=== PATIENT | female | born 1970 | race Caucasian/White ===

== ENCOUNTER 2021-09-07 19:34 | Inpatient (IN) | payer OTHER ==
[2021-09-07] MEDS ORDERED: levETIRAcetam IV 1,000 MG in SALINE 1 100ML.BAG IVPB STA (20:04)
[2021-09-07] MEDS ORDERED: LORazepam 2 MG/ML INJ IM STA (20:04)
[2021-09-07] MEDS ORDERED: LORazepam 2 MG/ML INJ IV STA (20:04)
--- NOTE | 2021-09-07 20:10 | ED ---
General Adult HPI - General Chief complaint: Seizure Stated complaint: Seizure Time Seen by Provider: 09/07/21 19:39 Source: patient Mode of arrival: ambulatory - History of Present Illness Initial comments: Dictation was produced using [employer] dictation software. please excuse any grammatical, word or spelling errors. Chief Complaint: 51-year-old female brought to our emergency Department from [facility] for seizures. History of Present Illness: 51-year-old female sent in from [facility] for escalation of care. Patient was initially seen at [facility] for alleged for seizures today. According to transfer documentation there was concern of perhaps methamphetamine withdrawals. She did have a seizure that was witnessed by the ER doctor [facility] she was given 2 mg of Ativan. She had blood work performed and computed tomography scan the brain which all were unremarkable. At the time of arrival patient states she had a mild headache. She reports that she takes Topamax and Keppra. She does not know the exact dose. States that she is mostly compliant with it except for one or 2 days last week. Patient has any chest pain or shortness of breath. No constitutional symptoms. She states that she is expressing a lot of stress but that is normal for her. According to the transferring ER doctor she was sent to her facility [facility] that we have a neurology hospitalist. [facility] did have neurology but only the tele neurology service. The ROS documented in this emergency department record has been reviewed and confirmed by me. Those systems with pertinent positive or negative responses have been documented in the HPI. All other systems are other negative and/or noncontributory. PHYSICAL EXAM: General Impression: Alert and oriented x3, not in acute distress HEENT: Normocephalic atraumatic, extra-ocular movements intact, pupils equal and reactive to light bilaterally, mucous membranes moist. Cardiovascular: Heart regular rate and rhythm Chest: Able to complete full sentences, no retractions, no tachypnea Abdomen: abdomen soft, non-tender, non-distended, no organomegaly Musculoskeletal: Pulses present and equal in all extremities, no peripheral edema Motor: no focal deficits noted Neurological: CN II-XII grossly intact, no focal motor or sensory deficits noted Skin: Intact with no visualized rashes Psych: Normal affect and mood ED course: 51-year-old female presents emergency Department from outside hospital for admission because we have neurology hospitalist. Vital signs upon arrival are within acceptable limits. While patient was being triaged by nursing staff patient did have a seizure that lasted for 2 minutes she was given 2 mg of Ativan. Patient also ordered for 1 g of Keppra. Case is discussed with Dr. Lauren of neurology. He recommended starting patient on Keppra 1000 mg twice a day and Topamax 100 mg twice a day. Patient be admitted to stepdown unit. When necessary Ativan ordered. Patient be admitted to [facility] hospitalist group. - Related Data Allergies Allergy/AdvReac Type Severity Reaction Status Date / Time acetaminophen [From Tylenol] Allergy Rash/Hives Verified 09/07/21 20:06 morphine Allergy Rash/Hives Verified 09/07/21 20:06 Review of Systems ROS Statement: Those systems with pertinent positive or pertinent negative responses have been documented in the HPI. ROS Other: All systems not noted in ROS Statement are negative. Course Vital Signs 09/07/21 19:43 Temperature 97.6 F Pulse Rate 68 Respiratory 15 Rate Blood Pressure 122/77 Medical Decision Making - Lab Data Result diagrams: 09/07/21 20:12 09/07/21 20:12 Lab Results 09/07/21 09/07/21 09/07/21 Range/Units 20:12 20:12 20:12 WBC 9.0 (3.8-10.6) k/uL RBC 4.31 (3.80-5.40) m/uL Hgb 13.8 (11.4-16.0) gm/dL Hct 42.4 (34.0-46.0) % MCV 98.3 (80.0-100.0) fL MCH 32.1 (25.0-35.0) pg MCHC 32.7 (31.0-37.0) g/dL RDW 12.7 (11.5-15.5) % Plt Count 290 (150-450) k/uL MPV 6.9 Neutrophils % 78 % Lymphocytes % 15 % Monocytes % 5 % Eosinophils % 1 % Basophils % 0 % Neutrophils # 7.0 (1.3-7.7) k/uL Lymphocytes # 1.4 (1.0-4.8) k/uL Monocytes # 0.4 (0-1.0) k/uL Eosinophils # 0.1 (0-0.7) k/uL Basophils # 0.0 (0-0.2) k/uL Sodium 139 (137-145) mmol/L Potassium 5.2 H (3.5-5.1) mmol/L Chloride 107 (98-107) mmol/L Carbon Dioxide 26 (22-30) mmol/L Anion Gap 6 mmol/L BUN 19 H (7-17) mg/dL Creatinine 0.73 (0.52-1.04) mg/dL Est GFR (CKD-EPI)AfAm >90 (>60 ml/min/1.73 sqM) Est GFR (CKD-EPI)NonAf >90 (>60 ml/min/1.73 sqM) Glucose 84 (74-99) mg/dL Plasma Lactic Acid Jaycob 1.0 (0.7-2.0) mmol/L Calcium 9.5 (8.4-10.2) mg/dL Critical Care Time Critical Care Time: Yes Total Critical Care Time: 33 Disposition Clinical Impression: Seizure Disposition: ADMITTED IP TO THIS [facility] Condition: Fair Referrals: None,Stated [Primary Care Provider] - 1-2 days Decision Time: 21:00
[2021-09-07 20:38] LABS: Basophils % (A) 0 %; Eosinophils # (A) 0.1 k/uL (0-0.7); Eosinophils % (A) 1 %; HCT 42.4 % (34.0-46.0); HGB 13.8 gm/dL (11.4-16.0); Lymphocytes # (A) 1.4 k/uL (1.0-4.8); Lymphocytes % (A) 15 %; MCH 32.1 pg (25.0-35.0); MCHC 32.7 g/dL (31.0-37.0); MCV 98.3 fL (80.0-100.0); Mean Platelet Volume 6.9; Monocytes # (A) 0.4 k/uL (0-1.0); Monocytes % (A) 5 %; Neutrophils % (A) 78 %; Platelet Count 290 k/uL (150-450); RBC 4.31 m/uL (3.80-5.40); RDW 12.7 % (11.5-15.5)
[2021-09-07 20:44] LABS: African American GFR (CKD) >90 (>60 ml/min/1.73 sqM); Anion Gap 6 mmol/L; Blood Urea Nitrogen 19 mg/dL (7-17); Calcium 9.5 mg/dL (8.4-10.2); Carbon Dioxide 26 mmol/L (22-30); Chloride 107 mmol/L (98-107); Glucose 84 mg/dL (74-99); Non-African American GFR(CKD) >90 (>60 ml/min/1.73 sqM); Sodium 139 mmol/L (137-145)
[2021-09-07 20:46] LABS: Potassium 5.2 mmol/L (3.5-5.1)
[2021-09-07] MEDS ORDERED: NALOXONE 0.4 MG/ML 1 ML VIAL IV PRN (20:57)
[2021-09-07] MEDS ORDERED: LORazepam 2 MG/ML INJ IV PRN (20:57)
[2021-09-07] MEDS: levETIRAcetam 500 MG TAB PO SCH (23:41)
[2021-09-07] MEDS: TOPIRAMATE 100 MG TAB PO SCH (23:41)
[2021-09-08] MEDS: SODIUM CHLORIDE 0.9% 1,000 ML IV SCH ×2 (07:24→20:04)
[2021-09-08] MEDS: HEPARIN SODIUM,PORCINE/PF 5,000 UNIT/0.5 ML SYRINGE SQ SCH ×2 (09:11→19:59)
[2021-09-08] MEDS: TOPIRAMATE 100 MG TAB PO SCH (09:11)
[2021-09-08] MEDS: BUTALB/APAP/CAFF 50-325-40MG TAB PO PRN (09:12)
[2021-09-08] MEDS: levETIRAcetam 500 MG TAB PO SCH ×2 (09:12→19:59)
[2021-09-08] MEDS: FAMOTIDINE 20 MG/2 ML VIAL IV SCH ×2 (09:12→19:59)
[2021-09-08] MEDS: PANTOPRAZOLE 40 MG/10 ML VIAL IV SCH (09:12)
--- NOTE | 2021-09-08 10:20 | P.HPIM ---
History of Present Illness This is a pleasant 51 years old female with past medical history of seizure. She was transferred from [facility] for evaluation for her seizure. Patient has 2 of her seizure medication change and to Topamax. She H ad One Week Ago and Prior to Admission. Patient is been from [place] and she has been here for 3 days as per report. She's been smoking marijuana prior to development seizure. Also patient on arrival to the emergency room at [facility] she was in active seizure, weakness for 2 minutes.. Also there was possible to considering methamphetamine withdrawal. Also patient says that she's been taking her medication of Keppra and Topamax. Also she had multiple seizures on admission. Patient currently was sitting in bed in the emergency room. She is fully awake and oriented to time, place and person. She still states she is here visiting from [place] for the last 3 days. She is a known case of seizure since . She states she has been having bunch of seizures. She states that she follow up with her neurologist and due to her seizure on last May he switched her gabapentin and 2 Keppra. While Topamax she's been taking it for the last 2 years. Patient was compliant with taking her seizure medication. Yesterday she had a seizure which lasted for 25 minutes as per Faviola and. And after 10 minutes she had another seizure which lasted 15-20 minutes. Patient reports another seizure about one week ago, one month ago and last May. Also she has several seizures last year. Also patient is complaining of from headache. She states that this is her migraine headache which happens every 2-3 weeks and usually lasts 4-5 days. She started to have headache about 3 days ago which started in the back of her head and then moved to the left side, and she rated at 6/10. [place] like throbbing and usually it limits her activities. Patient also complaining from left upper and lower extremity numbness and weakness, her numbness is in her left hand and arm left side down into the foot. In process look weaker which has been going on for the last 2 days. Patient also she has history of absent left knee patella. Chest history of kidney stones status post ureteral stent. She reports some increased frequency of urination but no dysuria or urgency. She smokes about 1/2 pack per day, no alcohol or illicit drugs. Vitals are stable. Labs including CBC, BMP are unremarkable except for potassium 5.2. At [facility], i reviewed work up there and shows Urine drug screen was positive for cannabinoids and benzodiazepines. UA is suspicious for infection. CT of the head without contrast showing no evidence of acute hemorrhage or mass effect. Review of Systems CONSTITUTIONAL: No fever, no malaise, no fatigue. HEENT: No recent visual problems or hearing problems. Denied any sore throat. CARDIOVASCULAR: No orthopnea, PND, no palpitations, no syncope. PULMONARY: No shortness of breath, no cough, no hemoptysis. GASTROINTESTINAL: No diarrhea, no nausea, no vomiting, no abdominal pain. Normoactive bowel sounds. NEUROLOGICAL: No headaches, no weakness, no numbness. HEMATOLOGICAL: Denies any bleeding or petechiae. GENITOURINARY: Denies any burning micturition, frequency, or urgency. MUSCULOSKELETAL/RHEUMATOLOGICAL: Denies any joint pain, swelling, or any muscle pain. ENDOCRINE: Denies any polyuria or polydipsia. Medications and Allergies Home Medications Medication Instructions Recorded Confirmed Type Unable To Assess [Unable to Assess] 09/07/21 09/07/21 History Allergies Allergy/AdvReac Type Severity Reaction Status Date / Time acetaminophen [From Tylenol] Allergy Rash/Hives/ Verified 09/08/21 10:01 Swelling morphine Allergy Rash/Hives/ Verified 09/08/21 10:01 Swelling Physical Exam Vitals: Vital Signs Temp Pulse Resp BP 09/08/21 04:30 88 98/48 09/08/21 02:15 70 99/64 09/08/21 00:15 67 104/70 09/07/21 22:15 71 117/92 09/07/21 21:15 74 126/83 09/07/21 19:43 97.6 F 68 15 122/77 Intake and Output 09/07/21 09/08/21 09/08/21 22:59 06:59 14:59 Other: Weight 66.678 kg GENERAL: The patient is alert and oriented x3, not in any acute distress. Well developed, well nourished. HEENT: Pupils are round and equally reacting to light. EOMI. No scleral icterus. No conjunctival pallor. Normocephalic, atraumatic. No pharyngeal erythema. No thyromegaly. CARDIOVASCULAR: S1 and S2 present. No murmurs, rubs, or gallops. PULMONARY: Chest is clear to auscultation, no wheezing or crackles. ABDOMEN: Soft, nontender, nondistended, normoactive bowel sounds. No palpable organomegaly. MUSCULOSKELETAL: No joint swelling or deformity. EXTREMITIES: No cyanosis, clubbing, or pedal edema. NEUROLOGICAL: Cranial nerves are grossly intact. Left arm and leg weak compared to the right side 3/5. Sensation showing numbness on the left side. Meningeal signs are absent. Gait: Deferred SKIN: No rashes. No petechiae Results CBC & Chem 7: 09/07/21 20:12 09/07/21 20:12 Labs: Abnormal Lab Results - Last 24 Hours (Table) 09/07/21 Range/Units 20:12 Potassium 5.2 H (3.5-5.1) mmol/L BUN 19 H (7-17) mg/dL Assessment and Plan Assessment: Breakthrough seizure left hemiparesis, rule out acute stroke Possible complicated Migraine headache possible Acute urinary tract infection, related to her history of kidney stone a nd ureteral stent Nicotine dependence Substance abuse with cannabinoids Plan: This is a pleasant 51 years old female who presents with seizure. Continue with Keppra and Topamax. Neurology consult. Continue with Ativan as needed Start fiorocet when necessary Neuro check continue with ceftriaxone and follow-up culture at [facility]. Repeat urine analysis Check a bladder scan Labs and medication were reviewed.. Continue same treatment. Continue with symptomatic treatment. Resume home medication. Monitor lytes and vitals. DVT and GI prophylaxis. Further recommendations depends on the clinical course of the patient DVT prophylaxis: Subcutaneous heparin GI Prophylaxis: Pepcid PT/OT: Pending Prognosis is guarded
[2021-09-08 13:55] LABS: Appearance,Urine Cloudy (Clear); Bacteria,Urine Rare /hpf; Bilirubin,Urine Negative (Negative); Blood,Urine Small (Negative); Color,Urine Yellow; Glucose,Urine (UA) Negative (Negative); Hyaline Casts,Urine 1 /lpf (0-2); Ketones,Urine Negative (Negative); Leukocyte Esterase,Urine Large (Negative); Mucus,Urine Occasional /hpf; Nitrite,Urine Negative (Negative); PH, Urine 7.5 (5.0-8.0); Protein,Urine Trace (Negative); RBC,Urine 19 /hpf (0-5); Specific Gravity,Urine 1.015 (1.001-1.035); Squamous Epithelial Cell,Urine 11 /hpf (0-4); Urobilinogen,Urine <2.0 mg/dL (<2.0); WBC,Urine 72 /hpf (0-5)
--- NOTE | 2021-09-08 16:10 | P.CNNES ---
History of Present Illness Consult date: 09/08/21 Requesting physician: Pardeep Damon Reason for Consult: Seizures History of Present Illness: Patient is a 51-year-old female, brought to the [facility] as a transfer from [facility] by ambulance yesterday at 7:34 PM for neurological evaluation. As per EMS flow sheet patient was brought in by her roommate after having a seizure in which the roommate states that lasted about 7 minutes. Patient was transferred to [facility] for neurological evaluation. Patient was alert and oriented 4 with GCS of 15. Patient has history of seizures and diabetes. Staff mentioned that patient was a little lethargic when she first arrived to them but slowly perked up while being in the care. Patient has received 2 mg of Ativan in [facility]. Patient's vitals recorded by EMS was 138/84 pulse rate 84 respiration 18 saturation 95% blood sugar 122. Temperature 98.2. Patient's blood test shows normal CBC, normal chem 7. Potassium 5.2. Patient used to live in [facility] and recently moved to [facility]. She has not established neurologist here locally. Patient tells me that she was "born with epilepsy". She has tried various medications including Dilantin, Depakote, Tegretol and phenobarbital. Most recently she is on Keppra at 150 mg twice a day and Topamax 50 mg daily. She believes Keppra has helped for the seizures. She used to have seizures" all the time", but now they're occurring about every 2 weeks. In the last 6 years, she had seizures in which her heart stops beating, and she states that once she "completely ". She required CPR. Other times she states that her "talks to her and brings her back". Patient says that she has 1-5 seizures a week based upon the level of stress. At the level of stress is high, the seizures are more. Patient says that she gets a grand mal as well as petit mal seizures. She denies any tongue bite although she does not lose control of urine. She has smoked less than half pack per day since 2013. She smokes weed once in a while. Denies any use of drugs. No alcohol use. She is recovering alcoholic since 2016. She drank heavily for several years prior. Outside records from [facility] not available. Review of Systems As mentioned in HPI. All other review of systems reviewed and unremarkable. Medications and Allergies Home Medications Medication Instructions Recorded Confirmed Type levETIRAcetam [Keppra] 250 mg PO Q12HR 09/08/21 09/08/21 History Allergies Allergy/AdvReac Type Severity Reaction Status Date / Time acetaminophen [From Tylenol] Allergy Rash/Hives/ Verified 09/08/21 10:01 Swelling morphine Allergy Rash/Hives/ Verified 09/08/21 10:01 Swelling Physical Examination - Vital Signs Vital Signs: Vital Signs Temp Pulse Resp BP Pulse Ox 09/08/21 09:00 68 16 114/76 97 09/08/21 04:30 88 98/48 09/08/21 02:15 70 99/64 09/08/21 00:15 67 104/70 09/07/21 22:15 71 117/92 09/07/21 21:15 74 126/83 09/07/21 19:43 97.6 F 68 15 122/77 Intake and Output 09/07/21 09/08/21 09/08/21 22:59 06:59 14:59 Other: Weight 66.678 kg Patient is a middle aged female in no acute distress. Patient is alert awake oriented to time place and person. Speech and language f unctions are normal. Attention, concentration and fund of knowledge is adequate. On cranial examination, pupils are equal, round and reacting to light, visual tovar are full on confrontation, extraocular muscles are intact with no nystagmus. Face is symmetric, tongue protrudes to the midline. Palatal elevation and sensation normal, hearing and shoulder shrug normal, facial sensation normal. Shoulder shrug normal. On muscle strength testing, there is no pronator drift and the strength is n ormal in arms distally and proximally. In the lower extremities patient has chronic weakness and numbness of the left leg. Her ankle dorsiflexion are normal bilaterally. Hip flexion is 4 on the right, 3+ on the left. Deep tendon reflexes are diminished and plantars are downgoing bilaterally. Sensory to touch is equal in the arms with no neglect. In the lower limbs patient has decreased sensation for touch in the left leg as compared to the right. Cerebellar function showed no ataxia for [id number] testing. Tone and bulk of muscles normal. Gait not checked. On general examination, there is no carotid bruit or murmur, S1-S2 audible. Abdomen is soft nontender. No organomegaly. Bowel sounds present. Chest is clear. Peripheral pulses are present. No edema. Results - Laboratory Findings CBC and BMP: 09/07/21 20:12 09/07/21 20:12 Abnormal Lab Findings: Abnormal Labs 09/07/21 20:12 Potassium 5.2 H BUN 19 H Assessment and Plan Assessment: * Seizure disorder, came with breakthrough seizure. Patient is on very low-dose of seizure medications including Keppra 250 mg twice a day and Topamax 50 mg at bedtime. Uncertain if patient has epileptic or nonepileptic seizures or combination of both. * Marijuana use. * Previous history of alcoholism, sober since 2016. Plan: * We will increase Keppra to 500 mg twice a day (MANAGER REPORT on Keppra 250 mg twice a day). Increase Topamax to 50 mg twice a day (MANAGER REPORT on Topamax 50 mg daily). * EEG was performed today, which is normal. No epileptiform activity was seen. * Neurologically clear for discharge. * Patient informed of [place] state law of no driving unless seizure free for 6 months, climbing ladders, operating dangerous machinery or unsupervised swim luis. * Recommend patient establish with local neurologist within 1-2 weeks if possible. Patient may benefit from prolonged, video EEG monitoring for further evaluation of her seizure disorder. * Thank you for the consult.
--- NOTE | 2021-09-08 16:22 | EEG ---
ELECTROENCEPHALOGRAM REPORT DATE OF SERVICE: 09/08/2021 PREAMBLE: This is a 51-year-old female who has lifelong history of seizure disorder, came with seizures. This study is performed to evaluate for any epileptiform activity. EEG FINDINGS: A 21 channel digital EEG recording with video component, utilizing 10/20 international system with referential and bipolar montages. Background consists of well developed, well regulated, moderate to high amplitude activity in the 10-12 hertz alpha. Background is posterior dominant and reactive to eye opening and closing. Drowsiness was seen with appearance of bilaterally symmetric theta frequency rhythm. Deeper stages of sleep were not seen. The photic driving response was not seen. No focal or generalized epileptiform activity was seen. Hyperventilation was not performed. IMPRESSION: This is a normal awake and drowsy EEG. No focal, lateralized or epileptiform activity was seen. Normal EEG does not rule out seizure disorder. If your suspicion for seizures is high, suggest prolonged, sleep-deprived EEG. MMODL / IJN: [id number] /
[2021-09-08] MEDS: NICOTINE 14MG/24HR PATCH TRANSDERM SCH (17:43)
[2021-09-08] MEDS: TOPIRAMATE 25 MG TAB PO SCH (19:59)
[2021-09-09 07:42] LABS: Levetiracetam (Keppra) 4.3 ug/mL (3.0-60.0)
[2021-09-09 08:17] LABS: Calcium 9.3 mg/dL (8.4-10.2); Potassium 4.4 mmol/L (3.5-5.1)
[2021-09-09] MEDS: TOPIRAMATE 25 MG TAB PO SCH ×2 (08:55→20:00)
[2021-09-09] MEDS: NICOTINE 14MG/24HR PATCH TRANSDERM SCH (08:55)
[2021-09-09] MEDS: BUTALB/APAP/CAFF 50-325-40MG TAB PO PRN ×2 (08:55→19:58)
[2021-09-09] MEDS: FAMOTIDINE 20 MG/2 ML VIAL IV SCH ×2 (08:55→20:01)
[2021-09-09] MEDS: levETIRAcetam 500 MG TAB PO SCH ×2 (08:55→19:58)
[2021-09-09] MEDS: PANTOPRAZOLE 40 MG/10 ML VIAL IV SCH (08:56)
[2021-09-09] MEDS: HEPARIN SODIUM,PORCINE/PF 5,000 UNIT/0.5 ML SYRINGE SQ SCH ×2 (08:57→19:58)
[2021-09-09] MEDS ORDERED: ONDANSETRON 4 MG/2 ML VIAL IVP PRN (13:49)
[2021-09-09] MEDS: SODIUM CHLORIDE 0.9% 1,000 ML IV SCH (20:00)
--- NOTE | 2021-09-10 07:27 | P.PN ---
Subjective Progress Note Date: 09/09/21 Patient was seen for a follow-up. Patient is sitting comfortably in his recliner. No seizures. Patient's blood test from today shows normal Chem-7, UA with large amount of leukocyte Estrace, 72 WBCs and rare bacteria. Urine cultures are negative. Patient currently on Rocephin 1 g every 24 hours. Objective - Vital Signs Vital signs: Vital Signs Temp 98.0 F 09/09/21 16:46 Pulse 68 09/09/21 16:46 Resp 18 09/09/21 16:46 BP 110/71 09/09/21 16:46 Pulse Ox 96 09/09/21 16:46 Intake & Output 09/08/21 09/09/21 09/09/21 18:59 06:59 18:59 Intake Total 485 Balance 485 Weight 66.678 kg Intake: Oral 485 Other: Voiding Method Toilet Toilet # Voids 1 1 2 - Exam Mental status, speech and language functions are normal. - Labs CBC & Chem 7: 09/07/21 20:12 09/09/21 07:17 Labs: Abnormal Lab Results - Last 24 Hours (Table) 09/09/21 Range/Units 07:17 Chloride 108 H (98-107) mmol/L BUN 19 H (7-17) mg/dL Creatinine 1.11 H (0.52-1.04) mg/dL Microbiology - Last 24 Hours (Table) 09/08/21 13:30 Urine Culture - Preliminary Urine,Clean Catch Assessment and Plan Assessment: * Seizure disorder, came with breakthrough seizure. Patient is on very low-dose of seizure medications including Keppra 250 mg twice a day and Topamax 50 mg at bedtime. Uncertain if patient has epileptic or nonepileptic seizures or combination of both. * Marijuana use. * Previous history of alcoholism, sober since 2016. Plan: * We will increase Keppra to 500 mg twice a day (CARDIAC REHAB NURSE on Keppra 250 mg twice a day). Increase Topamax to 50 mg twice a day (CARDIAC REHAB NURSE on Topamax 50 mg daily). Patient's Keppra level was 4.3. (3-60). Higher dose of Keppra will help. * EEG 09/08/2021 was normal. No epileptiform activity was seen. * Neurologically clear for discharge. * Patient informed of [place] state law of no driving unless seizure free for 6 months, climbing ladders, operating dangerous machinery or unsupervised swimming. * Recommend patient establish with local neurologist within 1-2 weeks if possible. Patient may benefit from prolonged, video EEG monitoring for further evaluation of her seizure disorder. * Neurology will sign off. Please reconsult if any concerns.
[2021-09-10] MEDS: FAMOTIDINE 20 MG/2 ML VIAL IV SCH ×2 (08:27→19:51)
[2021-09-10] MEDS: levETIRAcetam 500 MG TAB PO SCH ×2 (08:27→19:51)
[2021-09-10] MEDS: TOPIRAMATE 25 MG TAB PO SCH ×2 (08:27→19:51)
[2021-09-10] MEDS: PANTOPRAZOLE 40 MG/10 ML VIAL IV SCH (08:27)
[2021-09-10] MEDS: BUTALB/APAP/CAFF 50-325-40MG TAB PO PRN (08:28)
[2021-09-10] MEDS: HEPARIN SODIUM,PORCINE/PF 5,000 UNIT/0.5 ML SYRINGE SQ SCH ×2 (08:33→19:51)
[2021-09-10] MEDS: NICOTINE 14MG/24HR PATCH TRANSDERM SCH (10:14)
--- NOTE | 2021-09-10 17:17 | P.PN ---
Subjective Progress Note Date: 09/09/21 Principal diagnosis: Breakthrough seizures Left hemiparesis Possible complicated migraine headache versus acute stroke Acute UTI Substance abuse 51 years old female with past medical history of seizure. She was transferred from [facility] for evaluation for her seizure. Patient has 2 of her seizure medication change and to Topamax. She Had One Week Ago and Prior to Admission. Patient is been from [place] and she has been here for 3 days as per report. She's been smoking marijuana prior to development seizure. Also patient on arrival to the emergency room at [facility] she was in active seizure, weakness for 2 minutes.. Also there was possible to considering methamphetamine withdrawal. Also patient says that she's been taking her medication of Keppra and Topamax. Also she had multiple seizures on admission. Patient currently was sitting in bed in the emergency room. She is fully awake and oriented to time, place and person. She still states she is here visiting from [place] for the last 3 days. She is a known case of seizure since . She states she has been having bunch of seizures. She states that she follow up with her neurologist and due to her seizure on last May he switched her gabapentin and 2 Keppra. While Topamax she's been taking it for the last 2 years. Patient was compliant with taking her seizure medication. Yesterday she had a seizure which lasted for 25 minutes as per Faviola and. And after 10 minutes she had another seizure which lasted 15-20 minutes. Patient reports another seizure about one week ago, one month ago and last May. Also she has several seizures last year. Also patient is complaining of from headache. She states that this is her migraine headache which happens every 2-3 weeks and usually lasts 4-5 days. She started to have headache about 3 days ago which started in the back of her head and then moved to the left side, and she rated at 6/10. [place] like throbbing and usually it limits her activities. Objective - Vital Signs Vital signs: Vital Signs Temp 97.8 F 09/09/21 08:07 Pulse 72 09/09/21 08:07 Resp 20 09/09/21 08:07 BP 112/62 09/09/21 08:07 Pulse Ox 97 09/09/21 08:07 Intake & Output 09/08/21 09/09/21 09/09/21 18:59 06:59 18:59 Intake Total 485 Balance 485 Weight 66.678 kg Intake: Oral 485 Other: Voiding Method Toilet Toilet # Voids 1 1 - Exam GENERAL: The patient is alert and oriented x3, not in any acute distress. Well developed, well nourished. HEENT: Pupils are round and equally reacting to light. EOMI. No scleral icterus. No conjunctival pallor. Normocephalic, atraumatic. No pharyngeal erythema. No thyromegaly. CARDIOVASCULAR: S1 and S2 present. No murmurs, rubs, or gallops. PULMONARY: Chest is clear to auscultation, no wheezing or crackles. ABDOMEN: Soft, nontender, nondistended, normoactive bowel sounds. No palpable organomegaly. MUSCULOSKELETAL: No joint swelling or deformity. EXTREMITIES: No cyanosis, clubbing, or pedal edema. NEUROLOGICAL: Cranial nerves are grossly intact. Left arm and leg weak compared to the right side 3/5. Sensation showing numbness on the left side. Meningeal signs are absent. Gait: Deferred SKIN: No rashes. No petechiae - Labs CBC & Chem 7: 09/07/21 20:12 09/09/21 07:17 Labs: Abnormal Lab Results - Last 24 Hours (Table) 09/08/21 09/09/21 Range/Units 13:30 07:17 Chloride 108 H (98-107) mmol/L BUN 19 H (7-17) mg/dL Creatinine 1.11 H (0.52-1.04) mg/dL Urine Appearance Cloudy H (Clear) Urine Protein Trace H (Negative) Urine Blood Small H (Negative) Ur Leukocyte Esterase Large H (Negative) Urine RBC 19 H (0-5) /hpf Urine WBC 72 H (0-5) /hpf Ur Squamous Epith Cells 11 H (0-4) /hpf Urine Bacteria Rare H (None) /hpf Urine Mucus Occasional H (None) /hpf Microbiology - Last 24 Hours (Table) 09/08/21 13:30 Urine Culture - Preliminary Urine,Clean Catch Assessment and Plan Assessment: Breakthrough seizure left hemiparesis, rule out acute stroke Possible complicated Migraine headache possible Acute urinary tract infection, related to her history of kidney stone and ureteral stent Nicotine dependence Substance abuse with cannabinoids Plan: This is a pleasant 51 years old female who presents with seizure. Continue with Keppra and Topamax. Neurology consult. Continue with Ativan as needed Start fiorocet when necessary Neuro check continue with ceftriaxone and follow-up culture at [facility]. Repeat urine analysis Check a bladder scan Labs and medication were reviewed.. Continue same treatment. Continue with symptomatic treatment. Resume home medication. Monitor lytes and vitals. DVT and GI prophylaxis. Further recommendations depends on the clinical course of the patient DVT prophylaxis: Subcutaneous heparin GI Prophylaxis: Pepcid PT/OT: Pending Prognosis is guarded
--- NOTE | 2021-09-10 17:20 | P.PN ---
Subjective Progress Note Date: 09/10/21 Principal diagnosis: Breakthrough seizures Left hemiparesis Possible complicated migraine headache versus acute stroke Acute UTI Substance abuse 51 years old female with past medical history of seizure. She was transferred from [facility] for evaluation for her seizure. Patient has 2 of her seizure medication change and to Topamax. She Had One Week Ago and Prior to Admission. Patient is been from [place] and she has been here for 3 days as per report. She's been smoking marijuana prior to development seizure. Also patient on arrival to the emergency room at [facility] she was in active seizure, weakness for 2 minutes.. Also there was possible to considering methamphetamine withdrawal. Also patient says that she's been taking her medication of Keppra and Topamax. Also she had multiple seizures on admission. Patient currently was sitting in bed in the emergency room. She is fully awake and oriented to time, place and person. She still states she is here visiting from [place] for the last 3 days. She is a known case of seizure since . She states she has been having bunch of seizures. She states that she follow up with her neurologist and due to her seizure on last May he switched her gabapentin and 2 Keppra. While Topamax she's been taking it for the last 2 years. Patient was compliant with taking her seizure medication. Yesterday she had a seizure which lasted for 25 minutes as per Faviola and. And after 10 minutes she had another seizure which lasted 15-20 minutes. Patient reports another seizure about one week ago, one month ago and last May. Also she has several seizures last year. Also patient is complaining of from headache. She states that this is her migraine headache which happens every 2-3 weeks and usually lasts 4-5 days. She started to have headache about 3 days ago which started in the back of her head and then moved to the left side, and she rated at 6/10. [place] like throbbing and usually it limits her activities. 09/10/2021 Patient is seen and evaluated resting in bed; complaints of headache responding to Tylenol Vital signs are reviewed and reveal a temperature of 97.8, pulse 70, respiration 18 and blood pressure 101/70 with O2 saturation of 96% on room air Patient remains on IV ceftriaxone for UTI; urine culture is obtained and significant for skin and genital gordo; patient has been empirically placed on IV antibiotics; remains symptomatic; we will continue and complete an empiric five-day course of antibiotic therapy Objective - Vital Signs Vital signs: Vital Signs Temp 97.8 F 09/10/21 12:09 Pulse 70 09/10/21 12:09 Resp 18 09/10/21 12:09 BP 101/70 09/10/21 12:09 Pulse Ox 96 09/10/21 12:09 Intake & Output 09/09/21 09/10/21 09/10/21 18:59 06:59 18:59 Intake Total 485 Balance 485 Weight 66.7 kg Intake: Oral 485 Other: Voiding Method Toilet Toilet Toilet # Voids 3 2 3 - Exam GENERAL: The patient is alert and oriented x3, not in any acute distress. Well developed, well nourished. HEENT: Pupils are round and equally reacting to light. EOMI. No scleral icterus. No conjunctival pallor. Normocephalic, atraumatic. No pharyngeal erythema. No thyromegaly. CARDIOVASCULAR: S1 and S2 present. No murmurs, rubs, or gallops. PULMONARY: Chest is clear to auscultation, no wheezing or crackles. ABDOMEN: Soft, nontender, nondistended, normoactive bowel sounds. No palpable organomegaly. MUSCULOSKELETAL: No joint swelling or deformity. EXTREMITIES: No cyanosis, clubbing, or pedal edema. NEUROLOGICAL: Cranial nerves are grossly intact. Left arm and leg weak compared to the right side 3/5. Sensation showing numbness on the left side. Meningeal signs are absent. Gait: Deferred SKIN: No rashes. No petechiae - Labs CBC & Chem 7: 09/07/21 20:12 09/09/21 07:17 Labs: Microbiology - Last 24 Hours (Table) 09/08/21 13:30 Urine Culture - Final Urine,Clean Catch Assessment and Plan Assessment: Breakthrough seizure left hemiparesis, rule out acute stroke Possible complicated Migraine headache possible Acute urinary tract infection, related to her history of kidney stone and ureteral stent Nicotine dependence Substance abuse with cannabinoids Plan: This is a pleasant 51 years old female who presents with seizure. Continue with Keppra and Topamax. Neurology consult. Continue with Ativan as needed Start fiorocet when necessary Neuro check continue with ceftriaxone and follow-up culture at [facility]. Repeat urine analysis Check a bladder scan Labs and medication were reviewed.. Continue same treatment. Continue with symptomatic treatment. Resume home medication. Monitor lytes and vitals. DVT and GI prophylaxis. Further recommendations depends on the clinical course of the patient DVT prophylaxis: Subcutaneous heparin GI Prophylaxis: Pepcid PT/OT: Pending Prognosis is guarded
[2021-09-10] MEDS: SODIUM CHLORIDE 0.9% 1,000 ML IV SCH (19:52)
[2021-09-11 06:44] LABS: Calcium 9.4 mg/dL (8.4-10.2); Potassium 4.1 mmol/L (3.5-5.1)
[2021-09-11] MEDS: TOPIRAMATE 25 MG TAB PO SCH ×2 (08:42→20:29)
[2021-09-11] MEDS: PANTOPRAZOLE 40 MG/10 ML VIAL IV SCH (08:42)
[2021-09-11] MEDS: levETIRAcetam 500 MG TAB PO SCH ×2 (08:42→20:29)
[2021-09-11] MEDS: FAMOTIDINE 20 MG/2 ML VIAL IV SCH ×2 (08:43→20:29)
[2021-09-11] MEDS: NICOTINE 14MG/24HR PATCH TRANSDERM SCH (08:46)
[2021-09-11] MEDS: HEPARIN SODIUM,PORCINE/PF 5,000 UNIT/0.5 ML SYRINGE SQ SCH ×2 (08:46→20:30)
[2021-09-11] MEDS: BUTALB/APAP/CAFF 50-325-40MG TAB PO PRN (12:16)
[2021-09-11] MEDS: LORATADINE-PSEUDOEPH 5-120 MG 1 EACH TAB.ER.12H PO SCH ×2 (12:16→20:29)
[2021-09-11] MEDS: SODIUM CHLORIDE 0.9% 1,000 ML IV SCH ×2 (14:09→20:30)
--- NOTE | 2021-09-11 16:28 | P.PN ---
Subjective Progress Note Date: 09/11/21 Principal diagnosis: Breakthrough seizures Left hemiparesis Possible complicated migraine headache versus acute stroke Acute UTI Substance abuse 51 years old female with past medical history of seizure. She was transferred from [facility] for evaluation for her seizure. Patient has 2 of her seizure medication change and to Topamax. She Had One Week Ago and Prior to Admission. Patient is been from [place] and she has been here for 3 days as per report. She's been smoking marijuana prior to development seizure. Also patient on arrival to the emergency room at [facility] she was in active seizure, weakness for 2 minutes.. Also there was possible to considering methamphetamine withdrawal. Also patient says that she's been taking her medication of Keppra and Topamax. Also she had multiple seizures on admission. Patient currently was sitting in bed in the emergency room. She is fully awake and oriented to time, place and person. She still states she is here visiting from [place] for the last 3 days. She is a known case of seizure since . She states she has been having bunch of seizures. She states that she follow up with her neurologist and due to her seizure on last May he switched her gabapentin and 2 Keppra. While Topamax she's been taking it for the last 2 years. Patient was compliant with taking her seizure medication. Yesterday she had a seizure which lasted for 25 minutes as per Faviola and. And after 10 minutes she had another seizure which lasted 15-20 minutes. Patient reports another seizure about one week ago, one month ago and last May. Also she has several seizures last year. Also patient is complaining of from headache. She states that this is her migraine headache which happens every 2-3 weeks and usually lasts 4-5 days. She started to have headache about 3 days ago which started in the back of her head and then moved to the left side, and she rated at 6/10. [place] like throbbing and usually it limits her activities. 09/10/2021 Patient is seen and evaluated resting in bed; complaints of headache responding to Tylenol Vital signs are reviewed and reveal a temperature of 97.8, pulse 70, respiration 18 and blood pressure 101/70 with O2 saturation of 96% on room air Patient remains on IV ceftriaxone for UTI; urine culture is obtained and significant for skin and genital gordo; patient has been empirically placed on IV antibiotics; remains symptomatic; we will continue and complete an empiric five-day course of antibiotic therapy 09/11/2021 Patient is seen and evaluated in room at bedside; reports excessive weakness, nasal congestion along with runny nose and watery eyes; continues to complain of headaches; does report history of ALLERGIC sinusitis Vital signs are reviewed and remained stable Labs are reviewed which reveal sodium of 136, potassium of 4.1, BUN/creatinine trending up at 20/1.14 from 19/0.73 on 09/07/2021; patient reports poor oral intake - We will start patient on normal saline at rate of 75 mL an hour; Claritin 10 mg daily; we will order influenza A and B screen; continue with IV fluid hydration and symptomatic treatment Patient has been cleared for discharge by neuro service; however patient reporting excessive weakness and inability; discharge will be held for IV fluid hydration Can be discharged in next 24 hours once hydration improves and influenza screen is negative Objective - Vital Signs Vital signs: Vital Signs Temp 98.0 F 09/11/21 08:41 Pulse 73 09/11/21 08:41 Resp 18 09/11/21 08:41 BP 95/65 09/11/21 08:41 Pulse Ox 95 09/11/21 08:41 Intake & Output 09/10/21 09/11/21 09/11/21 18:59 06:59 18:59 Intake Total 485 118 Balance 485 118 Intake: Oral 485 118 Other: Voiding Method Toilet Toilet Toilet # Voids 2 2 - Exam GENERAL: The patient is alert and oriented x3, not in any acute distress. Well developed, well nourished. HEENT: Pupils are round and equally reacting to light. EOMI. No scleral icterus. No conjunctival pallor. Normocephalic, atraumatic. No pharyngeal erythema. No thyromegaly. CARDIOVASCULAR: S1 and S2 present. No murmurs, rubs, or gallops. PULMONARY: Chest is clear to auscultation, no wheezing or crackles. ABDOMEN: Soft, nontender, nondistended, normoactive bowel sounds. No palpable organomegaly. MUSCULOSKELETAL: No joint swelling or deformity. EXTREMITIES: No cyanosis, clubbing, or pedal edema. NEUROLOGICAL: Cranial nerves are grossly intact. Left arm and leg weak compared to the right side 3/5. Sensation showing numbness on the left side. Meningeal signs are absent. Gait: Deferred SKIN: No rashes. No petechiae - Labs CBC & Chem 7: 09/07/21 20:12 09/11/21 06:07 Labs: Abnormal Lab Results - Last 24 Hours (Table) 09/11/21 Range/Units 06:07 Sodium 136 L (137-145) mmol/L Carbon Dioxide 19 L (22-30) mmol/L BUN 20 H (7-17) mg/dL Creatinine 1.14 H (0.52-1.04) mg/dL Assessment and Plan Assessment: Breakthrough seizure left hemiparesis, rule out acute stroke Possible complicated Migraine headache possible Acute urinary tract infection, related to her history of kidney stone and ureteral stent Nicotine dependence Substance abuse with cannabinoids Plan: This is a pleasant 51 years old female who presents with seizure. Continue with Keppra and Topamax. Neurology consult. Continue with Ativan as needed Start fiorocet when necessary Neuro check continue with ceftriaxone and follow-up culture at [facility]. Repeat urine analysis Check a bladder scan Labs and medication were reviewed.. Continue same treatment. Continue with symptomatic treatment. Resume home medication. Monitor lytes and vitals. DVT and GI prophylaxis. Further recommendations depends on the clinical course of the patient DVT prophylaxis: Subcutaneous heparin GI Prophylaxis: Pepcid PT/OT: Pending Prognosis is guarded
[2021-09-11 21:41] VITALS: RESP 18
[2021-09-12] MEDS: SODIUM CHLORIDE 0.9% 1,000 ML IV SCH (06:37)
[2021-09-12 07:14] LABS: Calcium 9.1 mg/dL (8.4-10.2); Potassium 4.8 mmol/L (3.5-5.1)
[2021-09-12] MEDS: TOPIRAMATE 25 MG TAB PO SCH (08:14)
[2021-09-12] MEDS: levETIRAcetam 500 MG TAB PO SCH (08:14)
[2021-09-12] MEDS: LORATADINE-PSEUDOEPH 5-120 MG 1 EACH TAB.ER.12H PO SCH (08:14)
[2021-09-12] MEDS: NICOTINE 14MG/24HR PATCH TRANSDERM SCH (08:17)
[2021-09-12] MEDS: FAMOTIDINE 20 MG/2 ML VIAL IV SCH (08:17)
[2021-09-12] MEDS ORDERED: PSEUDOEPHEDRINE 30 MG TAB PO ONE (08:18)
[2021-09-12] MEDS: HEPARIN SODIUM,PORCINE/PF 5,000 UNIT/0.5 ML SYRINGE SQ SCH (08:18)
[2021-09-12 08:25] LABS: Topiramate 0.9 ug/mL (2.0-20.0)
[2021-09-12 12:28] VITALS: BP 110/70; PULSE 70; TEMP 98
[2021-09-12] MEDS: BUTALB/APAP/CAFF 50-325-40MG TAB PO PRN (14:02)
--- NOTE | 2021-09-12 23:30 | P.DS ---
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 She was transferred from [facility] for evaluation for her seizure. Patient has 2 of her seizure medication changed and currently she is on Keppra Topamax. Patient has been evaluated by neurologist for several seizures. Increase her dose of Keppra 250 mg and to 500 mg twice a day also increased her dose of Toprol makes from once daily until twice a day. Patient informed and she agrees. She had no more seizure. She is back to her mentation status. Also patient treated with UTI for ceftriaxone. Also she received Claritin-D for her sinusitis which is improving today and she states. Other than that she is back to her baseline and she denies any other complaints. No chest pain or dyspnea. No abdominal pain or vomiting. No change in urine or bowel habits. No fever. Gait is normal. Patient was cleared for discharge by neurologist Problems and management plan were discussed with the patient and he verbalized understanding and acceptance Patient was found stable and can be discharged home however he needs follow-up as an outpatient. Patient was instructed to follow up with PCP within one week and patient agrees. Patient has no PCP Dr. Clark suggested for her to follow-up in one week and she agrees. The patient was instructed to follow up with Dr. Carrasco or Dr. Remberto French or Dr.Samuel Wynne in 1-2 weeks and she agrees to call and make her own appointments Physical exam Gen: patient is a AAOx3, no distress CVS: S1-S2, RRR, no murmur Lungs: B/L CTA, no wheezing Abdomen: soft, no distention, no tenderness, positive bowel sounds Extremity: no leg edema or induration Neuro: Cranial nerves are grossly intact. Strength 5/5. Sensation intact. Time spent more than 35 minutes Patient Condition at Discharge: Fair Plan - Discharge Summary Discharge Rx Participant: No New Discharge Prescriptions: New Loratadine-Pseudoeph 5-120 mg [Claritin-D 12 Hour] 1 each PO Q12HR 3 Days #6 Topiramate [Topamax] 50 mg PO BID #60 tab Cefuroxime [Ceftin] 250 mg PO BID 3 Days #6 tab levETIRAcetam [Keppra] 500 mg PO BID #60 tab Discontinued levETIRAcetam [Keppra] 250 mg PO Q12HR Discharge Medication List Cefuroxime [Ceftin] 250 mg PO BID 3 Days #6 tab 09/12/21 [Rx] Loratadine-Pseudoeph 5-120 mg [Claritin-D 12 Hour] 1 each PO Q12HR 3 Days #6 09/12/21 [Rx] Topiramate [Topamax] 50 mg PO BID #60 tab 09/12/21 [Rx] levETIRAcetam [Keppra] 500 mg PO BID #60 tab 09/12/21 [Rx] Follow up Appointment(s)/Referral(s): Casey Jalloh MD [REFERRING] - 1 Week (call office to make follow up appointment when open) Jordi Sr MD [REFERRING] - 2 Weeks (neurologist ) Chiara Carrasco MD [Medical Doctor] - 2 Weeks (neurologist ) None,Stated [Primary Care Provider] - 1-2 days Germania Sr MD [REFERRING] - 2 Weeks (neurologist ) Patient Instructions/Handouts: Epilepsy (GEN) Activity/Diet/Wound Care/Special Instructions: heart healthy diet activity is restricted till you see your doctor Discharge Disposition: HOME WITH HOME HEALTH SERVICES
== END 2021-09-12 14:30 | disposition home or self-care (01) | DRG 101 ==
LOC: EC 19:34 → 4SSUR 20:57 → 3SCARD 21:17
PROVIDERS: ADMIT Hospitalist; ATTEND Hospitalist
DX: G40.909 Epilepsy, unspecified, not intractable, without status epilepticus (principal); N39.0 Urinary tract infection, site not specified; G83.84 Todd's paralysis (postepileptic); E11.9 Type 2 diabetes mellitus without complications; F10.21 Alcohol dependence, in remission; G43.909 Migraine, unspecified, not intractable, without status migrainosus; J32.9 Chronic sinusitis, unspecified; J30.9 Allergic rhinitis, unspecified; F17.210 Nicotine dependence, cigarettes, uncomplicated; Z79.899 Other long term (current) drug therapy; Z87.442 Personal history of urinary calculi; Z88.6 Allergy status to analgesic agent; Z88.5 Allergy status to narcotic agent
CPT/HCPCS: 36415; 80048; 80177; 80201; 81001; 83605; 85025; 87086; 87502; 95816; 96374; 96375; 99291

== ENCOUNTER → 2021-12-16 | Outpatient (CLI) | payer OTHER ==
--- NOTE | 2021-12-17 03:11 | MR ---
EXAMINATION TYPE: MR knee LT wo con DATE OF EXAM: 12/16/2021 COMPARISON: None HISTORY: Left knee pain. Multiplanar multi echo imaging of the left knee with no contrast. FINDINGS: There is knee joint effusion. There is a large popliteal cyst measuring 7.5 cm in length. There is in tact anterior and posterior cruciate ligaments. There are small areas of bone bruise in the patella. There is medial displacement of the medial meniscus. There is narrowing of the medial joint space. Th ere are small areas of increased signal within the medial and lateral meniscus. No evidence of a tear to the articular surface. The collateral ligaments appear intact. No fracture seen. There is mild spurring of the femoral and tibial condyles. IMPRESSION: There is a popliteal cyst. Knee joint effusion. There is intrasubstance tear of the medial and latera l menisci. No ligamentous tear. Osteoarthritic changes. No fracture seen.
== END | disposition home or self-care (01) ==
LOC: RADMRIMAIN 12:59
PROVIDERS: ATTEND Orthopaedic Surgery
DX: M25.562 Pain in left knee (principal); M25.469 Effusion, unspecified knee

== ENCOUNTER 2022-03-17 09:29 | Day surgery (SDC) | payer OTHER ==
--- NOTE | 2022-03-16 11:22 | P.HPOR ---
History of Present Illness H&P Date: 03/16/22 Chief Complaint: Left knee pain The patient is a 51-year-old female who presents with progressive left knee pain for the past 4 years. She notes medial pain along with giving way and locking. She's tried medications in addition to an injection without much relief. She notes it significantly limits her normal activities. Review of Systems As per HPI Past Medical History Past Medical History: Asthma, Seizure Disorder Additional Past Medical History / Comment(s): last seizure 10/2021, hypoglycemia, hx of kidney stones, arthritis in left knee History of Any Multi-Drug Resistant Organisms: None Reported Past Surgical History: Section, Cholecystectomy Additional Past Surgical History / Comment(s): 2 c- section, ureteral stent to help pass stones. Past Anesthesia/Blood Transfusion Reactions: No Reported Reaction Smoking Status: Current some day smoker - Past Family History Mother Family Medical History: Asthma, Hypertension Additional Family Medical History / Comment(s): kidney failure Father History Unknown: Yes Medications and Allergies Home Medications Medication Instructions Recorded Confirmed Type Albuterol Inhaler [Ventolin Hfa 2 puff INHALATION DAILY 03/15/22 03/15/22 History Inhaler] levETIRAcetam [Keppra] 250 mg PO DAILY 03/15/22 03/15/22 History Allergies Allergy/AdvReac Type Severity Reaction Status Date / Time acetaminophen [From Tylenol] Allergy Rash/Hives/ Verified 03/15/22 08:54 Swelling morphine Allergy Rash/Hives/ Verified 03/15/22 08:54 Swelling Physical Examination - Knee left Appearance: effusion Effusion grade: grade 1 Varus alignment in stance: 5 degrees Tenderness with palpation: medial Pain: with flexion Gait: limping ROM: extension: -10 degrees ROM: flexion: 85 degrees Crepitus with motion: Yes Strength: extension: 5/5 Strength: flexion: 5/5 Meniscal tests: medial meniscal tests: positive Results The patient is a well-developed well-nourished female of endomorphic habitus. HEENT exam is nonfocal, neck is supple. She has painless passive motion of the left hip. Her distal neurovascular appears intact in the left lower extremity. - Diagnostic results Knee MRI: image reviewed (Left knee MRI shows evidence of a posterior medial meniscal tear along with a large posterior Hua cyst.) Assessment and Plan Assessment: Left knee internal derangement/symptomatic medial meniscal tear Left knee moderate medial compartment osteoarthrosis Seizure disorder Plan: I talked with the patient length regarding her condition along with treatment options. At this point she remains quite symptomatic despite attempted conservative measures. We will plan to proceed with left knee arthroscopic evaluation with probable partial medial meniscectomy. We will likely perform that as an outpatient procedure. Risks and benefits were discussed at length in layman's terms. Time with Patient: Less than 30
[~2022-03-17 09:29] MED LIST: DEXAMETHASONE SOD PHOSPHATE 4 MG/ML 1 ML VIAL IV ONE; LACTATED RINGERS 1,000 ML IV SCH; MIDAZOLAM 2 MG/2 ML VIAL IV PRN; ONDANSETRON 4 MG/2 ML VIAL IVP ONE; SCOPOLAMINE 1 MG/72 HR PATCH TRANSDERM ONE; fentaNYL (PF) 50 MCG/ML 2 ML AMP IV PRN
[2022-03-17 10:02] LABS: Glucose,Whole Blood 87 mg/dL (70-110)
[2022-03-17] MEDS ORDERED: PROPOFOL 10 MG/ML 20 ML VIAL IV ONE (11:13)
[2022-03-17] MEDS ORDERED: MIDAZOLAM 2 MG/2 ML VIAL ONE (11:13)
[2022-03-17] MEDS ORDERED: KETOROLAC 15 MG/ML 1 ML VIAL ONE (11:13)
[2022-03-17] MEDS ORDERED: LIDOCAINE 2% INJ 20 MG/ML (2 ML VIAL) ONE (11:13)
[2022-03-17] MEDS ORDERED: fentaNYL (PF) 50 MCG/ML 2 ML AMP ONE (11:13)
[2022-03-17] MEDS ORDERED: SUCCINYLCHOLINE CHLORIDE 200 MG/10 ML VIAL IV ONE (11:13)
[2022-03-17] MEDS ORDERED: EPINEPHrine (PF) 1 ML in SODIUM CHLORIDE 0.9% IRRIGATIO 3,000 ML IRRIGATION ONE ×4 (11:18)
--- NOTE | 2022-03-17 12:13 | P.OP ---
Date of Procedure: 03/17/22 Preoperative Diagnosis: Left knee internal derangement Postoperative Diagnosis: Left knee posterior medial meniscal tear/anterior lateral meniscal tear/grade 4 chondral injury lateral aspect the femoral trochlea/loose body 1 cm x 0.5 cm Procedure(s) Performed: Left knee arthroscopic partial medial meniscectomy/partial lateral meniscectomy/microfracture femoral trochlea/loose body removal 1 x 0.5 cm Anesthesia: GETA Surgeon: Aleksandar Tovar Estimated Blood Loss (ml): 10 Pathology: none sent Condition: stable Disposition: PACU Indications for Procedure: The patient's 51-year-old female who presents with progressive left knee pain and mechanical symptoms despite conservative measures. A discussion of the risks and benefits of operative intervention versus continued conservative measures was made with the patient. She opted to proceed with surgery. Operative risks to include infection, neurovascular injury, development of blood clots, possible incomplete resolution of symptoms, possible worsening symptoms and need for subsequent procedures was discussed. Informed consent was obtained. Operative Findings: As below Description of Procedure: The patient was brought to the operating room, and after induction of general anesthesia examined the left knee. Collaterals were stable, Krissy was negative, and posterior drawer was negative. The left lower extremity was prepped and draped in a normal fashion. A superior lateral portal was made through a 3 mm skin incision superior and lateral to the patella. This was used for outflow. A lateral portal was made through a 5 mm vertical skin incision lateral to the patella tendon above the joint line. Diagnostic arthroscopy was performed. On inspection of the medial compartment, and oblique tear involving the posterior most aspect of the medial meniscus in the white-red junction was noted. This was debrided back to stable base with straight baskets and a motorized shaver. Remaining medial meniscus was stable and intact. Grade 2-3 chondral changes were noted diffusely involving the distal medial femoral condyle. On inspection of the notch, the anterior cruciate ligament appeared to be intact. On inspection of the lateral compartment, a small tear involving the anterior aspect of the lateral meniscus in the white-white junction was noted. This was debrided back to stable base with a motorized shaver. The remaining lateral meniscus was stable and intact. On inspection of the patellofemoral articulation, a grade 4 chondral injury was noted involving the lateral aspect of the femoral trochlea. There was a loose flap of cartilage debris back to stable base with a motorized shaver. Microfracture is performed with a power pick breaching the subchondral surface down to the bone marrow elements. There was a 1 x 0.5 cm loose body in the gutter. This was removed with a shaver.. The knee was then thoroughly irrigated. The portals were closed with Steri-Strips. A sterile dressing was applied in addition to a compression st ocking. The patient was awoken from general anesthesia and transferred to recovery room in good condition. Blood loss was estimated at 10 mL. No complications were incurred.
[2022-03-17 12:24] VITALS: TEMP 97.2
[2022-03-17] MEDS ORDERED: HYDROmorphone 0.5 MG/0.5 ML SYRINGE IVP ONE ×4 (12:29→13:03)
[2022-03-17] MEDS ORDERED: LACTATED RINGERS 1,000 ML IV ONE (12:33)
[2022-03-17] MEDS ORDERED: ONDANSETRON 4 MG/2 ML VIAL ONE (13:54)
[2022-03-17] MEDS ORDERED: ONDANSETRON 4 MG/2 ML VIAL IVP ONE ×2 (13:55→14:05)
[2022-03-17 14:08] LABS: Glucose,Whole Blood 139 mg/dL (70-110)
[2022-03-17] MEDS: traMADol 50 MG TAB ONE ×2 (14:47→14:54)
[2022-03-17 14:58] VITALS: RESP 20
[2022-03-17 15:54] VITALS: BP 118/76; PULSE 55
== END 2022-03-17 15:56 | disposition home or self-care (01) ==
LOC: OR 09:29
PROVIDERS: ATTEND Orthopaedic Surgery
DX: M23.301 Other meniscus derangements, unspecified lateral meniscus, left knee (principal); M23.304 Other meniscus derangements, unspecified medial meniscus, left knee; J45.909 Unspecified asthma, uncomplicated; G40.909 Epilepsy, unspecified, not intractable, without status epilepticus; F17.200 Nicotine dependence, unspecified, uncomplicated; Z87.442 Personal history of urinary calculi; Z90.49 Acquired absence of other specified parts of digestive tract; Z82.49 Family history of ischemic heart disease and other diseases of the circulatory system; Z79.51 Long term (current) use of inhaled steroids
CPT/HCPCS: 29880; 29879; J2250; J0330; J1100; J0690; J2405; J0171; J3010; J1885; J2704; J1170; J2001

== ENCOUNTER 2022-09-26 07:57 | Observation (INO) | payer OTHER ==
--- NOTE | 2022-09-25 09:25 | P.HPOR ---
History of Present Illness H&P Date: 09/25/22 Chief Complaint: Left knee pain The patient's a 52-year-old female who presents with progressive left knee pain for the past several years worsening recently. She's having painful popping along with stiffness. She has difficult time with weightbearing activities. She feels like the knee is unstable. She's tried previous injections along with home exercises without much relief. She previously had arthroscopy in 2021. Review of Systems Negative except as in HPI Past Medical History Past Medical History: Asthma, Seizure Disorder Additional Past Medical History / Comment(s): CHRONIC LEFT KNEE PAINlast seizure 10/2021, hypoglycemia, hx of kidney stones, arthritis in left knee. SEASONAL ALLERGIES. History of Any Multi-Drug Resistant Organisms: None Reported Past Surgical History: Section, Cholecystectomy Additional Past Surgical History / Comment(s): 2 c- section, ureteral stent to help pass stones. Past Anesthesia/Blood Transfusion Reactions: No Reported Reaction Past Psychological History: No Psychological Hx Reported Smoking Status: Former smoker Past Alcohol Use History: None Reported Additional Past Alcohol Use History / Comment(s): QUIT SMOKER IN JULY 2022. smoked since 14 yrs old smokes < 1/2 ppd no alcohol use in 7 yrs Past Drug Use History: None Reported Additional Drug Use History / Comment(s): RECOVERY ALCOHOLIC, LAST DRING 7 YEARS AGO. - Past Family History Mother Family Medical History: Asthma, Hypertension Additional Family Medical History / Comment(s): kidney failure Father History Unknown: Yes Medications and Allergies Home Medications Medication Instructions Recorded Confirmed Type Albuterol Inhaler [Ventolin Hfa 2 puff INHALATION DAILY 03/15/22 09/25/22 History Inhaler] levETIRAcetam [Keppra] 250 mg PO HS 03/15/22 09/25/22 History Albuterol Sulfate [Proair 1 puff INHALATION DAILY 09/25/22 09/25/22 History Digihaler] Montelukast [Singulair] 10 mg PO DAILY PRN 09/25/22 09/25/22 History traZODone HCL 100 mg PO HS 09/25/22 09/25/22 History Allergies Allergy/AdvReac Type Severity Reaction Status Date / Time acetaminophen [From Tylenol] Allergy Rash/Hives/ Verified 03/17/22 10:03 Swelling morphine Allergy Rash/Hives/ Verified 03/17/22 10:03 Swelling Physical Examination - Knee left Appearance: effusion Effusion grade: grade 1 Varus alignment in stance: 10 degrees Tenderness with palpation: anterior, medial Pain: throughout ROM Gait: limping ROM: extension: -15 degrees ROM: flexion: 80 degrees Crepitus with motion: Yes Strength: extension: 5/5 Strength: flexion: 5/5 Meniscal tests: medial meniscal tests: positive, medial joint line pain: positive Results The patient is a well-developed well-nourished female proximal a 5 foot 6, 178 pounds of endomorphic habitus. HEENT exam is nonfocal, neck is supple. She has painless passive motion of the left hip. Straight leg raise is negative. Her distal neurovascular appears intact in the left lower extremity. Assessment and Plan Assessment: Left knee severe medial compartment osteoarthrosis Seizure disorder Plan: I talked to the patient at length regarding her condition along with treatment options. At this point she remains quite symptomatic with pain and mechanical symptoms related to her left knee osteoarthrosis despite previous conservative measures. After a thorough discussion she opted to proceed with surgery. We'll plan to proceed with left total knee arthroplasty. Risks and benefits were discussed at length in layman's turns. We will institute DVT prophylaxis postoperatively.
[~2022-09-26 07:57] MED LIST changes: +HYDROmorphone 0.5 MG/0.5 ML SYRINGE IVP PRN; -LACTATED RINGERS 1,000 ML IV SCH; +LIDOCAINE 1% (10MG/ML) FOR IV START INTRADERMA PRN; +MELOXICAM 7.5 MG TAB PO PRN; -SCOPOLAMINE 1 MG/72 HR PATCH TRANSDERM ONE; +TRANEXAMIC ACID IN NACL,ISO-OS 1,000 MG in SALINE 1 100ML.BAG IVPB PRN; -fentaNYL (PF) 50 MCG/ML 2 ML AMP IV PRN
[2022-09-26] MEDS ORDERED: LACTATED RINGERS 1,000 ML IV ONE ×2 (08:55→12:17)
[2022-09-26] MEDS ORDERED: MIDAZOLAM 2 MG/2 ML VIAL IVP ONE ×2 (09:02→09:10)
[2022-09-26] MEDS ORDERED: fentaNYL (PF) 50 MCG/ML 2 ML AMP IVP ONE (09:02)
[2022-09-26] MEDS ORDERED: PROPOFOL 10 MG/ML 20 ML VIAL IV ONE (10:15)
[2022-09-26] MEDS ORDERED: MIDAZOLAM 2 MG/2 ML VIAL ONE (10:15)
[2022-09-26] MEDS ORDERED: TRANEXAMIC ACID IN NACL,ISO-OS 1,000 MG/100 ML BAG ONE (10:15)
[2022-09-26] MEDS ORDERED: ROPIVACAINE 5 MG/ML 30 ML VIAL ONE (10:15)
[2022-09-26] MEDS ORDERED: SODIUM CHLORIDE 0.9% (PF) 10 ML VIAL ONE (10:15)
[2022-09-26] MEDS ORDERED: fentaNYL (PF) 50 MCG/ML 2 ML AMP ONE (10:15)
--- NOTE | 2022-09-26 10:18 | P.ANPRN ---
Procedure Note - Anesthesia - Nerve Block Performed Left Adductor Canal Time Out Performed: Yes (08:56) Date of Procedure: 09/26/22 Procedure Start Time: :56 Procedure Stop Time: :03 Location of Patient: PreOp Indication: Acute Post-Operative Pain, Requested by Surgeon (Dr Tovar) Sedation Type: Sedate with meaningful contact maintained Preparation: Sterile Prep, Sterile Dressing Position: Supine Catheter: Indwelling Needle Types: Pajunk Needle Gauge: 21 Ultrasound used to visualize needle placement: Yes Ultrasound used to observe medication spread: Yes Injectate: 0.5% Ropivacaine (see comment for volume) (20cc) Blood Aspirated: No Pain Paresthesia on Injection Noted: No Resistance on Injection: Normal Image Stored and Saved: Yes Events: Uneventful and Well Tolerated
--- NOTE | 2022-09-26 10:20 | P.ANPRN ---
Procedure Note - Anesthesia - Nerve Block Performed Left iPack Time Out Performed: Yes Date of Procedure: 09/26/22 Procedure Start Time: :04 Procedure Stop Time: :09 Location of Patient: PreOp Indication: Acute Post-Operative Pain, Requested by Surgeon (Dr Tovar) Sedation Type: Sedate with meaningful contact maintained Preparation: Sterile Prep Position: Supine Catheter: None Needle Types: Pajunk Needle Gauge: 21 Ultrasound used to visualize needle placement: Yes Ultrasound used to observe medication spread: Yes Injectate: 0.5% Ropivacaine (see comment for volume) (15cc +5cc PF Normal saline) Blood Aspirated: No Pain Paresthesia on Injection Noted: No Resistance on Injection: Normal Image Stored and Saved: Yes Events: Uneventful and Well Tolerated
[2022-09-26] MEDS ORDERED: ceFAZolin 1,000 MG in SODIUM CHLORIDE 0.9% 1,000 ML IRRIGATION ONE (11:34)
[2022-09-26] MEDS ORDERED: MAGNESIUM HYDROXIDE 2,400 MG/10 ML CUP PO PRN (12:10)
[2022-09-26] MEDS ORDERED: traMADol 50 MG TAB PO PRN (12:10)
[2022-09-26] MEDS ORDERED: HYDROmorphone 0.5 MG/0.5 ML SYRINGE IVP PRN (12:10)
[2022-09-26] MEDS ORDERED: NALOXONE 0.4 MG/ML 1 ML VIAL IV PRN (12:10)
--- NOTE | 2022-09-26 12:32 | P.OP ---
Date of Procedure: 09/26/22 Preoperative Diagnosis: Left knee severe tricompartmental osteoarthrosis Postoperative Diagnosis: Same Procedure(s) Performed: Left total knee arthroplastycementedposterior stabilized Implants: Depuy Attune size 6 narrow cemented femoral component, size 5 cemented tibial component, 10 mm articular surface, 32 mm cemented patellar component. This is a posterior stabilized implant. Anesthesia: regional, spinal Surgeon: Aleksandar Tovar Manager Simulation #1: Sanjay Garcia Estimated Blood Loss (ml): 50 Pathology: none sent Condition: stable Disposition: PACU Indications for Procedure: The patient's a 52-year-old female who presents with progressive left knee pain secondary to osteoarthrosis despite conservative measures. A discussion of the risks and benefits of operative intervention versus continued conservative measures was made with patient. She opted to proceed with surgery. Operative risks to include infection, neurovascular injury, development of blood clots, fracture, component loosening/failure and possible need for subsequent procedures was discussed. Informed consent was obtained. Operative Findings: As below Description of Procedure: The patient was brought to the operating room, and after induction of spinal anesthesia the left lower extremity was prepped and draped in a normal fashion. The tourniquet was inflated to 270 mm marker. A longitudinal incision extending 3 finger breaths above the superior pole of patella extending to the medial aspect the tibial tubercle was then made. The skin and subcutaneous tissues were divided sharply. Electrocautery was used for hemostasis. A medial parapatellar arthrotomy was performed. The medial soft tissues to include the superficial and deep portions of the medial collateral ligament were elevated subperiosteally. The patella was everted. A portion of the retropatellar fat pad was excised sharply. The anterior cruciate ligament was sacrificed. Blunt retractors were placed. A starting hole was made in the distal femur 1 cm anterior to the posterior cruciate ligament origin. An intramedullary femoral guide was then inserted planning on 5 valgus distal cut with 9 mm distal resection. The cutting block was pinned in place. The distal cut was then made. The posterior referencing sizing guide was utilized. I felt size 6 narrow was most appropriate. 3 of external rotation was built into the system and verified off the trans-epicondylar axis and the posterior condyles. The cutting block was pinned in place. The anterior, posterior, and chamfer cuts then made. Bone fragments were removed. The intercondylar guide was placed and the notch cut was made with a sagittal saw. The bone block was removed in one fragment. The trial component was then placed. There is good anterior to posterior and medial to lateral fit. The distal peg holes were drilled. The trial component was removed. Attention was then paid towards preparing the proximal tibia. An extra medullary guide was utilized in line with the tibial shaft and second metatarsal distally. I planned on 2 mm resection from the medial compartment. The cutting block was pinned in place. The proximal tibial cut was then made. The bone was removed in one fragment. The remnants of the medial and lateral menisci were excised at the capsular junction with electrocautery. The tibia sized most appropriately at size 5. The trial femoral and tibial components were placed along with a 10 mm articular surface. I was able to obtain full flexion and extension with internal and external rotation. After several flexion and extension cycles, the tibial rotation was marked with electrocautery line with the medial one third of the tibial tubercle. Attention was then paid towards preparing the patella. A patella reamer was utilized taking stem to 14 mm of bone stock. A good flush cut was made. The patella sized most appropriately 32 mm. The peg holes were drilled. The trial components placed. I had good patellofemoral tracking with no hands technique. The trial components were then removed. The tibia was prepared in the appropriate rotation with appropriate drill and keel punch. The posterior osteophytes were removed with a curved osteotome. The flexion and extension gaps were checked and felt to be symmetric at 10 mm. A trial components were then removed. The bony surfaces were prepared with pulsatile lavage and dried. The tibial component was then cemented place was fully seated. Excess cement was removed. The femoral component cemented place and was fully seated. Excess cement was removed. The trial 10 mm articular surface was placed and the knee was put in full extension. The patella component was cemented place. After the cement had sufficiently hardened, the knee was again taken through a range of motion. Again I was able to obtain full flexion and extension with varus and valgus stress. The trial 10 mm articular surface was removed and the final one inserted. This was fully seated. Care was taken to avoid any soft tissue interposition. Pulsatile lavage was again utilized. The medial parapatellar arthrotomy was closed with #2 Ethibond suture. The tourniquet was deflated with approximately 60 minutes total tourniquet time. Final hemostasis was obtained with the cautery. There was minimal bleeding therefore a deep drain was not placed. The subcutaneous tissues were reapproximated with interrupted 2-0 Vicryl sutures. The skin was reapproximated with 3-0 subcuticular strata fix suture. Skin tape and adhesive was applied. A sterile dressing was applied. The patient was awoken from sedation and transferred to recovery room in good condition. Blood loss was estimated at 50 mL. No complications were incurred. Sponge and needle counts were correct at the end of the case. Sanjay HUGO assisted during the major components of this case to include exposure, bone resection, implantation, and closure.
[2022-09-26] MEDS ORDERED: ROPIVACAINE 1,100 MG, SODIUM CHLORIDE 0.9% 500 ML 330 ML, EMPTY PAIN BALL 1 EACH MISCELLANE PRN ×2 (12:33)
[2022-09-26] MEDS: LACTATED RINGERS 1,000 ML IV SCH (12:44)
--- NOTE | 2022-09-26 13:04 | XR ---
EXAMINATION TYPE: XR knee limited LT DATE OF EXAM: 09/26/2022 COMPARISON: NONE HISTORY: 52-year-old female evaluation for postoperative abnormality and alignment TECHNIQUE: 2 views FINDINGS: Images show placement of left total ureter plasty. Both distal femoral and proximal tibial components of the prosthesis are well seated without periprosthetic fracture. Anterior soft tissue swelling wit h soft tissue air as well as intra-articular air related to recent operation. Alignment grossly anato garcia. IMPRESSION: Uncomplicated postoperative appearance left total knee arthroplasty.
[2022-09-26] MEDS: hydrOXYzine pamoate 25 MG CAP PO PRN ×2 (14:32→20:39)
[2022-09-26] MEDS: SENNOSIDES-DOCUSATE SODIUM 1 EACH TAB PO SCH (20:39)
[2022-09-26] MEDS: HYDROmorphone 1 MG/ML 1 ML SYRINGE IVP PRN (22:46)
[2022-09-26] MEDS: traZODone HCL 100 MG TAB PO SCH (23:08)
[2022-09-26] MEDS: levETIRAcetam 250 MG TAB PO SCH (23:08)
[2022-09-27] MEDS: HYDROmorphone 1 MG/ML 1 ML SYRINGE IVP PRN ×3 (01:27→13:21)
[2022-09-27] MEDS: hydrOXYzine pamoate 25 MG CAP PO PRN ×3 (03:15→21:12)
--- NOTE | 2022-09-27 06:17 | P.PN ---
Progress Note - Text The patient is status post left adductor canal catheter placement. The catheter was placed for postoperative pain control, status post total left knee arthroplasty. Ropivacaine 0.2% is infusing at 8 mLs per hour. The patient has no complaints of left lower extremity numbness or weakness. Patient's VAS score is 5-6-10. Patient is incurring some posterior knee pain and has some pain superiorly and inferiorly from the knee. She also was having some left leg spasms. She has been given supplemental medicines by the staff to help a lleviate some of the symptoms. Assessment: Patient's adductor canal catheter is in place and working adequately Plan: The infusion has been adjusted try and help alleviate some of the knee pain.
[2022-09-27] MEDS: LACTATED RINGERS 1,000 ML IV SCH (06:50)
[2022-09-27 08:52] LABS: Basophils # (A) 0.03 X 10*3/uL (0.00-0.10); Basophils % (A) 0.2 %; Eosinophils # (A) 0.05 X 10*3/uL (0.04-0.35); Eosinophils % (A) 0.4 %; HCT 34.8 % (37.2-46.3); HGB 11.4 g/dL (12.0-15.0); Immature Grans, Automated 0.4 %; Lymphocytes # (A) 1.85 X 10*3/uL (0.90-5.00); Lymphocytes % (A) 13.9 %; MCH 32.2 pg (27.0-32.0); MCHC 32.8 g/dL (32.0-37.0); MCV 98.3 fL (80.0-97.0); Mean Platelet Volume 9.9 fL (9.5-12.2); Monocytes # (A) 1.17 X 10*3/uL (0.20-1.00); Monocytes % (A) 8.8 %; NRBC Per 100 WBC 0 /100 WBCS (0.0-0.0); Neutrophils # (A) 10.17 X 10*3/uL (1.80-7.70); Neutrophils % (A) 76.3 %; Platelet Count 233 X 10*3/uL (140-440); RBC 3.54 X 10*6/uL (4.10-5.20); RDW 12.8 % (11.5-14.5); WBC 13.32 X 10*3/uL (4.50-10.00)
[2022-09-27] MEDS: RIVAROXABAN 10 MG TAB PO SCH (08:53)
--- NOTE | 2022-09-27 10:17 | P.PN ---
Subjective Progress Note Date: 09/27/22 Principal diagnosis: Status post left total knee arthroplasty Patient evaluated today at bedside, she is resting comfortably in her hospital chair. Patient has been dealing with some increase in pain throughout the knee today. She does admit to some spasming's on the anterior posterior side. She has been urinating with no difficulties. She's not been up with physical thera py yet. She currently denies any headaches, lightheadedness, chest pain or shortness of breath. Objective - Vital Signs Vital signs: Vital Signs Temp 98.1 F 09/27/22 07:25 Pulse 79 09/27/22 07:25 Resp 16 09/27/22 07:25 BP 99/66 09/27/22 07:25 Pulse Ox 93 L 09/27/22 07:25 FiO2 Intake & Output 09/26/22 09/27/22 09/27/22 18:59 06:59 18:59 Intake Total 1251 290 Output Total 50 1200 Balance 1201 -910 Weight 98.1 kg Intake: IV 1251 Intake, IV Titration 290 Amount Lactated Ringers 1,000 ml 240 @ 20 mls/hr IV .Q24H [facility] Rx#:[id number] ceFAZolin 2 gm In Sodium 50 Chloride 0.9% 50 ml @ 100 mls/hr IVPB Q8H [facility] Rx#: [id number] Output: Urine 1200 Estimated Blood Loss 50 Other: Voiding Method Bedpan Bedpan # Voids 1 - Exam Left lower extremity: Incision is clean, dry, and intact. The exofin fusion tape is in good condition. There is minimal soft tissue swelling and ecchymosis surrounding the medial and lateral aspects of the incision. Calf is soft, no tenderness with palpation. Plantar flexion, dorsiflexion, EHL, FHL are intact. Sensory exam to light touch throughout the extremity is intact, dorsal pedis pulses 2+. - Labs CBC & Chem 7: 09/27/22 04:51 Labs: Abnormal Lab Results - Last 24 Hours (Table) 09/27/22 Range/Units 04:51 WBC 13.32 H (4.50-10.00) X 10*3/uL RBC 3.54 L (4.10-5.20) X 10*6/uL Hgb 11.4 L (12.0-15.0) g/dL Hct 34.8 L (37.2-46.3) % MCV 98.3 H (80.0-97.0) fL MCH 32.2 H (27.0-32.0) pg Immature Gran # 0.05 H (0.00-0.04) X 10*3/uL Neutrophils # 10.17 H (1.80-7.70) X 10*3/uL Monocytes # 1.17 H (0.20-1.00) X 10*3/uL Assessment and Plan Assessment: Postoperative day #1 status post left total knee arthroplasty Plan: Pain control, patient cannot utilize Liberty or Percocet due to an ALLERGY to Tylenol, she's been utilizing the 5 mg oxycodone plan to continue. will add Flexeril 5 mg to utilize for muscle spasms DVT prophylaxis, continue Xarelto during inpatient stay Wound care instructions discussed with patient, continue to utilize basic bandage Ice and elevate often Encourage incentive spirometer PT/OT, discuss the patient she needs to be up and ambulating with a walker and getting out of bed multiple times today Medical recommendations Discharge planning: Due to patient's pain control and ambulatory status, plan to keep in hospital for additional night, hoping to discharge home on 09/28/2022 with home health care Time with Patient: Less than 30
[2022-09-27] MEDS: CYCLOBENZAPRINE 5 MG TAB PO PRN (10:47)
[2022-09-27] MEDS ORDERED: MONTELUKAST 10 MG TAB PO PRN (18:08)
[2022-09-27] MEDS: SENNOSIDES-DOCUSATE SODIUM 1 EACH TAB PO SCH (21:11)
[2022-09-27] MEDS: levETIRAcetam 250 MG TAB PO SCH (21:12)
[2022-09-27] MEDS: traZODone HCL 100 MG TAB PO SCH (21:12)
[2022-09-28] MEDS: hydrOXYzine pamoate 25 MG CAP PO PRN (03:29)
[2022-09-28 07:31] VITALS: RESP 18
[2022-09-28] MEDS ORDERED: ALBUTEROL NEBULIZED 2.5 MG/3 ML INHALATION SCH (08:00)
--- NOTE | 2022-09-28 09:36 | CONS ---
CONSULTATION The patient of Dr. Tovar. CHIEF COMPLAINT: Osteoarthritis, left knee. HISTORY OF PRESENT ILLNESS: This lady is in for an elective replacement of the left knee. REVIEW OF SYSTEMS: She has had no headaches, chest pain, shortness of breath, cough, hemoptysis, abdominal pain, nausea, vomiting, melena, hematochezia, jaundice, etc. PAST MEDICAL HISTORY: Unremarkable. FAMILY HISTORY: Unremarkable. PERSONAL AND SOCIAL HISTORY: Unremarkable. She does have a history of seizures. MEDICATIONS: Include, 1. Trazodone. 2. Symbicort. 3. Montelukast. 4. Ventolin. 5. Levetiracetam. LABORATORY STUDIES: Include white count of 13,300 with a hemoglobin of 11.4. PHYSICAL EXAMINATION: VITAL SIGNS: Blood pressure is 136/80 with a pulse of 78, respirations 29, and she is afebrile. GENERAL: She appears to be well developed, well nourished, no acute distress. SKIN: Skin color is normal. Skin is warm, dry. LYMPHATICS: Lymph nodes are not enlarged. HEAD, EARS, EYES, NOSE, MOUTH AND THROAT: Normal. NECK: Neck veins are not distended. Thyroid is not enlarged. CHEST: Clear. CARDIAC: Normal. ABDOMEN: Soft, nontender. EXTREMITIES: Normal except for the left knee arthritis. NEUROLOGIC: She is intact. IMPRESSION: 1. Osteoarthritis of left knee. 2. Reactive airway disease. 3. Allergic sinusitis. 4. Seizure disorder. PLAN: Continue with proposed treatment program. Thank you respectfully, ALLYSSA / LANDY: [id number] /
--- NOTE | 2022-09-28 09:41 | PN ---
PROGRESS NOTE CHIEF COMPLAINT: Status post left knee replacement. HISTORY OF PRESENT ILLNESS: This lady is doing fairly well except for having significant discomfort. She has had no fevers, chills, cough, chest pain, etc. PHYSICAL EXAMINATION: VITAL SIGNS: Normal. CHEST: Clear. CARDIAC: Normal. ABDOMEN: Soft, nontender. Dressing is dry. IMPRESSION: Status post left knee replacement. PLAN: Follow for any medical issues and restart her usual medications. MMODL / IJN: [id number] /
[2022-09-28] MEDS: LACTATED RINGERS 1,000 ML IV SCH (11:10)
[2022-09-28] MEDS: RIVAROXABAN 10 MG TAB PO SCH (11:17)
[2022-09-28] MEDS: CYCLOBENZAPRINE 5 MG TAB PO PRN (11:21)
--- NOTE | 2022-09-28 12:00 | P.PN ---
Subjective Progress Note Date: 09/28/22 Principal diagnosis: Status post left total knee arthroplasty Patient evaluated today at bedside, she is resting in her hospital bed. I did discuss with case management and nursing, patient did have a lot of difficulty working with physical therapy, they are recommending subacute rehab. They have received prior for this already. She currently denies headaches, lightheadednes s, chest pain or shortness of breath. Objective - Vital Signs Vital signs: Vital Signs Temp 99.0 F 09/28/22 06:59 Pulse 90 09/28/22 08:45 Resp 18 09/28/22 06:59 BP 142/66 09/28/22 06:59 Pulse Ox 94 L 09/28/22 06:59 FiO2 Intake & Output 09/27/22 09/28/22 09/28/22 18:59 06:59 18:59 Output Total 650 Balance -650 Output: Urine 650 Other: Voiding Method Bedside Commode # Voids 1 3 - Exam Left lower extremity: Incision is clean, dry, and intact. The exofin fusion tape is in good condition. There is minimal soft tissue swelling and ecchymosis surrounding the medial and lateral aspects of the incision. Calf is soft, no tenderness with palpation. Plantar flexion, dorsiflexion, EHL, FHL are intact. Sensory exam to light touch throughout the extremity is intact, dorsal pedis pulses 2+. - Labs CBC & Chem 7: 09/27/22 04:51 Assessment and Plan Assessment: Postoperative day #2 status post left total knee arthroplasty Plan: Pain control, continue the oxycodone 5 mg and Flexeril 5 mg DVT prophylaxis, Xarelto 10 mg for 12 days Wound care instructions discussed with patient, continue to utilize basic mark ge Ice and elevate often Encourage incentive spirometer PT/OT, discuss the patient she needs to be up and ambulating with a walker and getting out of bed multiple times today Medical recommendations Discharge planning: planning for discharge to subacute today Time with Patient: Less than 30
--- NOTE | 2022-09-28 12:05 | P.DS ---
Providers Date of admission: 09/26/2022 Expected date of discharge: 09/28/22 Attending physician: Aleksandar Tovar Consults: 09/26/22 12:17 Consult Physician Routine Consulting Provider: Gilles Long Consult Reason/Comments: Medical Management s/p left total knee arthroplasty Do you want consulting provider notified?: Yes Primary care physician: Gilles Long Hospital Course: Date of admission: 09/26/2022 Date of discharge: 09/28/2022 Admission diagnosis: Status post left total knee arthroplasty Discharge diagnosis: Same Attending physician: Dr. Tovar Surgical procedures: Left total knee arthroplasty Brief history: Patient is a 52-year-old female with a history of progressive primary left knee osteoarthritis. At this point patient has failed conservative treatment measures and has opted to proceed with a elective left total knee arthroplasty. Hospital course: Details of patient's surgery can be found in operative report. Patient tolerated the procedure well and was subsequently transported to orthopedic floor. Patient's orthopeidc and medical care was provided daily. Patient had daily laboratory tests performed for evaluation of overall blood counts. Patient had daily physical therapy to include strengthening range of motion as well as education with walker ambulation. Patient was treated with Xarelto for their postoperative DVT prophylaxis during their inpatient stay. Patient was noted to have a relatively uneventful postoperative course. Patient reported satisfactory pain control with oral pain medications by postoperative day 1. Patient showed satisfactory progress with physical therapy. Patient moved steadily through the program and had no difficulty meeting the goals by postoperative day 2. Given patient's otherwise satisfactory course and having met physical therapy goals, plan is to discharge patient rehab on postoperative day 2. Discharge condition/disposition: Patient will be discharged rehab in stable condition. Discharge medications: Instructions are given on resumption of patient's normal daily medications per primary care recommendation, in addition patient will be prescribed oxycodone 5 mg, Xarelto 10 mg, Flexeril 5 mg, Senna S, MiraLAX 17 g. Discharge instructions: 1. Wound care and infection precautions, keep incision dry and covered while showering, no lotions, creams, moisturizers. No soaking, tubs, pools, hottubs. Do not scrub over the incision. 2. Weight-bear as tolerated with walker / cane until follow-up. 3. Ice and elevate when necessary. Do not exceed 20 minutes per hour with ice pack. 4. Utilize compression sleeve until seen at first follow up appointment. 5. Visiting nursing care. 6. Home physical therapy including home CPM. 7. Pain meds and anticoagulants per prescription. 8. Pain medication has potential to cause constipation. Increase oral fluid and fiber intake. Contact primary care provider if you have not had a bowel movement within 48 hours after discharge 9. No anti-inflammatory medication until discussed at first post operative visit, this including Motrin, Aleve, Mobic, Diclofenac. 10. Follow up in office at 2 weeks postop with Juan Daniel De La Cruz PA-C/Sanjay Vargas 11. Follow up with your primary care doctor 7-10 days after discharge. 12. Contact [facility] with any questions, . Procedures: Left total knee arthroplasty Patient Condition at Discharge: Good Plan - Discharge Summary Discharge Rx Participant: No New Discharge Prescriptions: New Cyclobenzaprine [Flexeril] 5 mg PO BID #21 tablet Sennosides/Docusate Sodium [Senna-S 8.6-50 mg Tablet] 1 each PO DAILY PRN #21 tablet PRN Reason: Constipation polyethylene glycoL 3350 [Miralax] 17 gm PO DAILY PRN #21 packet PRN Reason: Constipation Rivaroxaban [Xarelto] 10 mg PO DAILY #12 tab oxyCODONE HCL [OxyIR] 5 mg PO Q6H PRN 3 Days #12 tab PRN Reason: Pain No Action Montelukast [Singulair] 10 mg PO DAILY PRN PRN Reason: Allergy Symptoms Albuterol Inhaler [Ventolin Hfa Inhaler] 2 puff INHALATION DAILY levETIRAcetam [Keppra] 250 mg PO HS traZODone HCL 100 mg PO HS Albuterol Sulfate [Proair Digihaler] 1 puff INHALATION DAILY Discharge Medication List Albuterol Inhaler [Ventolin Hfa Inhaler] 2 puff INHALATION DAILY 03/15/22 [History] levETIRAcetam [Keppra] 250 mg PO HS 03/15/22 [History] Albuterol Sulfate [Proair Digihaler] 1 puff INHALATION DAILY 09/25/22 [History] Montelukast [Singulair] 10 mg PO DAILY PRN 09/25/22 [History] traZODone HCL 100 mg PO HS 09/25/22 [History] Cyclobenzaprine [Flexeril] 5 mg PO BID #21 tablet 09/28/22 [Rx] Rivaroxaban [Xarelto] 10 mg PO DAILY #12 tab 09/28/22 [Rx] Sennosides/Docusate Sodium [Senna-S 8.6-50 mg Tablet] 1 each PO DAILY PRN #21 tablet 09/28/22 [Rx] oxyCODONE HCL [OxyIR] 5 mg PO Q6H PRN 3 Days #12 tab 09/28/22 [Rx] polyethylene glycoL 3350 [Miralax] 17 gm PO DAILY PRN #21 packet 09/28/22 [Rx] Follow up Appointment(s)/Referral(s): Sanjay Garcia PAC [PHYSICIAN TIRE RETREADER] - 10/12/22 11:00 am [facility],Equipment [NON-STAFF] - As Needed (*Please call [facility] once home to arrange delivery of the Continuous Passive Motion (CPM) machine. ) Patient Instructions/Handouts: Knee Replacement (DC) Activity/Diet/Wound Care/Special Instructions: Orthopedic Discharge Instructions: 1. Wound care and infection precautions, keep incision dry and covered while showering, no lotions, creams, moisturizers. No soaking, pools, hot tubs. Do not scrub over incision. 2. Weight-bear as tolerated with walker / cane until follow-up. 3. Ice and elevate when necessary. Do not exceed 20 minutes per hour with ice pack. 4. Utilize compression sleeve until seen at first follow up appointment. 5. Pain meds and anticoagulants per prescription. 6. Pain medication has potential to cause constipation. Increase oral fluid and fiber intake. Contact primary care provider if you have not had a bowel movement within 48 hours after discharge. 7. No anti-inflammatory medication until discussed at first post operative visit, this including Motrin, Aleve, Mobic, Diclofenac. 8. Follow up in office at 2 weeks postop with Juan Daniel De La Cruz PA-C / Sanjay Garcia PA-C 9. Follow up with your primary care doctor 7-10 days after discharge. 10. Contact [facility] with any questions, . Keep incision clean, dry, intact. While showering, cover fusion tape with Saran wrap. Keep fusion tape on until follow-up appointment in office at 2 weeks. Discharge Disposition: TRANSFER TO SNF/ECF
[2022-09-28 14:34] VITALS: BP 132/67; PULSE 99; TEMP 98.5
--- NOTE | 2022-09-29 01:45 | PN ---
PROGRESS NOTE DATE OF SERVICE: 09/28/2022 CHIEF COMPLAINT: Arthritis left knee. HISTORY OF PRESENT ILLNESS: This lady is doing well. She may be going to rehab today. REVIEW OF SYSTEMS: She has had no nausea, fever and chills, etc. PHYSICAL EXAMINATION: CHEST: Clear. CARDIAC: Normal. ABDOMEN: Soft, nontender. EXTREMITIES: Knee dressing is dry. Pulses are good. IMPRESSION: Status post left TKA. PLAN: Probably to rehab today. MMODL / IJN: [id number] /
== END 2022-09-28 15:28 ==
LOC: OR 07:57 → 4SSUR 12:18 → OR 09-27 07:08 → UNDODISOB 09-28 15:28
PROVIDERS: ADMIT Orthopaedic Surgery; ATTEND Orthopaedic Surgery
DX: M17.12 Unilateral primary osteoarthritis, left knee (principal); M62.838 Other muscle spasm; G40.909 Epilepsy, unspecified, not intractable, without status epilepticus; J45.909 Unspecified asthma, uncomplicated; E16.2 Hypoglycemia, unspecified; F10.21 Alcohol dependence, in remission; Z79.899 Other long term (current) drug therapy; Z88.5 Allergy status to narcotic agent; Z88.6 Allergy status to analgesic agent; Z87.442 Personal history of urinary calculi; Z90.49 Acquired absence of other specified parts of digestive tract; Z87.891 Personal history of nicotine dependence; Z98.890 Other specified postprocedural states; Z82.49 Family history of ischemic heart disease and other diseases of the circulatory system; Z82.5 Family history of asthma and other chronic lower respiratory diseases; Z84.1 Family history of disorders of kidney and ureter
CPT/HCPCS: 94640; 97530; 97162; 97166; 64999; 64448; 85025; 73560; 27447; G0378 ×2; C1713 ×2; C1776; C1751; J2250; J1100; J0690 ×3; J2405; J3010; J1170 ×2; J2795

== ENCOUNTER 2024-09-12 09:33 | Inpatient (IN) | payer OTHER ==
[2024-09-12] MEDS: KETOROLAC 15 MG/ML 1 ML VIAL IVP STA (10:16)
[2024-09-12] MEDS: ONDANSETRON 4 MG/2 ML VIAL IVP STA (10:16)
[2024-09-12] MEDS: SODIUM CHLORIDE 0.9% 1,000 ML IV ONE (10:16)
[2024-09-12 10:49] LABS: Basophils # (A) 0.04 10*3/uL (0.00-0.10); Basophils % (A) 0.5 %; Eosinophils # (A) 0.16 10*3/uL (0.04-0.35); HGB 14.4 g/dL (12.0-15.0); Lymphocytes # (A) 1.66 10*3/uL (0.90-5.00); Lymphocytes % (A) 20.4 %; MCH 32.7 pg (27.0-32.0); MCHC 35.1 g/dL (32.0-37.0); Mean Platelet Volume 9.4 fL (9.5-12.2); Monocytes % (A) 8.6 %; Neutrophils # (A) 5.57 10*3/uL (1.80-7.70); Neutrophils % (A) 68.3 %; Platelet Count 255 10*3/uL (140-440); RBC 4.41 10*6/uL (4.10-5.20); RDW 12.3 % (11.5-14.5); WBC 8.15 10*3/uL (4.50-10.00)
[2024-09-12 11:00] LABS: ALT 13 U/L (4-34); AST 22 U/L (14-36); African American GFR (CKD) 69 (>60 ml/min/1.73 sqM); Albumin 4.3 g/dL (3.5-5.0); Alkaline Phosphatase 107 U/L (38-126); Amylase 73 U/L (30-110); Anion Gap 10 mmol/L; Blood Urea Nitrogen 24 mg/dL (7-17); Carbon Dioxide 21 mmol/L (22-30); Chloride 109 mmol/L (98-107); Glucose 81 mg/dL (74-99); Lipase 111 U/L (23-300); Non-African American GFR(CKD) 60 (>60 ml/min/1.73 sqM); Potassium 4.5 mmol/L (3.5-5.1); Sodium 140 mmol/L (137-145); Total Bilirubin 1.1 mg/dL (0.2-1.3); Total Protein 7.6 g/dL (6.3-8.2)
--- NOTE | 2024-09-12 11:03 | CT ---
EXAMINATION TYPE: CT abdomen pelvis wo con CT DLP: 794.8 mGycm, Automated exposure control for dose reduction was used. DATE OF EXAM: 09/12/2024 10:44 AM COMPARISON: None CLINICAL INDICATION:Female, 54 years old with history of abdominal pain. left flank. kidney stone?; L t flank pain TECHNIQUE: Standard CT of the abdomen and pelvis without IV or oral contrast. Lack of IV or oral co ntrast limits evaluation of solid and hollow organ viscera. Coronal and sagittal reformats were perfo rmed. FINDINGS: LOWER CHEST: Unremarkable ABDOMEN LIVER: Unremarkable noncontrast appearance GALLBLADDER AND BILE DUCTS: The gallbladder is surgically absent. Couple of the surgical clips migrat ed along the posterior aspect of the right hepatic lobe margin and inferior to the left hepatic lobe. No biliary ductal dilatation. PANCREAS: Unremarkable noncontrast appearance SPLEEN: Calcified granuloma. Nonenlarged ADRENAL GLANDS: Unremarkable noncontrast appearance. KIDNEYS AND URETERS: No hydronephrosis or renal calculus involving the right kidney. Mild left hydrou reteronephrosis with an obstructing 5 mm calculus within the mid left ureter. There is a 9 mm calculu s within the left renal pelvis. Additional punctate nonobstructing left renal 2 mm calculus. Cortica l thinning of the left kidney. PELVIS BLADDER: Under distended, limiting evaluation. REPRODUCTIVE: Unremarkable. ABDOMEN & PELVIS STOMACH AND BOWEL: Stomach and duodenum are unremarkable. Distal colonic diverticulosis without evide nce for acute diverticulitis. The appendix is within normal limits. No focal bowel wall thickening or surrounding inflammatory changes. No evidence of bowel obstruction. PERITONEUM: No evidence of pneumoperitoneum or free fluid. VASCULATURE: Mild atherosclerotic calcifications are present throughout the abdominal aorta and its b ranches. No evidence of aortic aneurysm. MUSCULOSKELETAL: No acute osseous abnormalities LYMPH NODES: No gross evidence for lymphadenopathy. SOFT TISSUE/ABDOMINAL WALL: Unremarkable IMPRESSION: 1. Mild left hydroureteronephrosis with an obstructing 5 mm calculus in the mid left ureter. Additio nal 9 mm calculus within the left renal pelvis and nonobstructing 2 mm calculus within the left kidne y. 2. Colonic diverticulosis without evidence for acute diverticulitis. [facility], , 09/12/2024 11:01 AM
[2024-09-12] MEDS: diphenhydrAMINE 50 MG/ML 1 ML VIAL IVP STA (11:07)
[2024-09-12] MEDS: FAMOTIDINE 20 MG/2 ML VIAL IV STA (11:07)
[2024-09-12] MEDS: methylPREDNISolone SOD SUCCI 125 MG/2 ML VIAL IV STA (11:07)
[2024-09-12 11:22] LABS: Appearance,Urine Cloudy (Clear); Bilirubin,Urine Negative (Negative); Blood,Urine Trace (Negative); Color,Urine Yellow; Glucose,Urine (UA) Negative (Negative); Hyaline Casts,Urine 1 /lpf (0-2); Ketones,Urine Negative (Negative); Leukocyte Esterase,Urine Large (Negative); Mucus,Urine Few /hpf; Nitrite,Urine Negative (Negative); PH, Urine 5.5 (5.0-8.0); Protein,Urine Trace (Negative); RBC,Urine 13 /hpf (0-5); Specific Gravity,Urine 1.021 (1.001-1.035); Squamous Epithelial Cell,Urine 3 /hpf (0-4); Urobilinogen,Urine <2.0 mg/dL (<2.0); WBC,Urine 179 /hpf (0-5)
[2024-09-12] MEDS ORDERED: HYDROmorphone 0.5 MG/0.5 ML SYRINGE IVP PRN (11:48)
[2024-09-12] MEDS ORDERED: FLUTICASONE NASAL 50MCG/SPRAY 16GM BTL EA NOSTRIL PRN (11:48)
[2024-09-12] MEDS ORDERED: NALOXONE 0.4 MG/ML 1 ML VIAL IV PRN (11:54)
--- NOTE | 2024-09-12 11:56 | ED ---
General Adult HPI - General Chief complaint: Abdominal Pain Stated complaint: Left ABD Pain Time Seen by Provider: 09/12/24 09:45 Source: patient, RN notes reviewed, old records reviewed Mode of arrival: ambulatory Limitations: no limitations - History of Present Illness Initial comments: Patient is a 54-year-old female who presents emergency department complaining of left-sided flank pain. Has a history of kidney stones. Has been getting treatment for a pyelonephritis versus UTI for multiple days including ciprofloxacin, as well as another antibiotic she was unaware of. She also receives treatment for epilepsy with Keppra and is compliant with her medications. States she has been having the symptoms for at least 5 days without much improvement. Has been having flank pain now for multiple weeks. Has been on the antibiotics for 5 days. Denies any nausea or vomiting. Denies any diarrhea. Denies any chest pain or shortness of breath. Denies any vaginal discharge or bleeding. Presents for further evaluation at this time. No change in bowel movements. - Related Data Home Medications Medication Instructions Recorded Confirmed Albuterol Inhaler [Ventolin Hfa 2 puff INHALATION RT-Q6H PRN 03/15/22 09/12/24 Inhaler] levETIRAcetam [Keppra] 500 mg PO BID 03/15/22 09/12/24 Montelukast [Singulair] 10 mg PO HS PRN 09/25/22 09/12/24 Budesonide/Formoterol Fumarate 2 puff INHALATION RT-BID 09/12/24 09/12/24 [Symbicort 80-4.5 Mcg Inhaler] Cholecalciferol (Vitamin D3) 50 mcg PO DAILY 09/12/24 09/12/24 [Vitamin D3 (50 Mcg = 2000 Iu)] Ciprofloxacin HCl [Cipro] 500 mg PO Q12HR 09/12/24 09/12/24 Fluticasone Nasal [place] [Flonase 1 spray EA NOSTRIL BID PRN 09/12/24 09/12/24 Nasal [place]] Multivitamins, Thera [Multivitamin 1 tab PO DAILY 09/12/24 09/12/24 (formulary)] Sulfamethox-Tmp 800-160Mg [Bactrim 1 tab PO Q12HR 09/12/24 09/12/24 DS 800-160 mg] oxyCODONE HCL/ACETAMINOPHEN 1 tab PO Q6H PRN 09/12/24 09/12/24 [oxyCODONE HCL/ACETAMINOPHEN 7.5-325] rOPINIRole HCL [Requip] 2 mg PO BID 09/12/24 09/12/24 Allergies Allergy/AdvReac Type Severity Reaction Status Date / Time morphine Allergy Rash/Hives/ Verified 09/12/24 11:31 Swelling Review of Systems ROS Statement: Those systems with pertinent positive or pertinent negative responses have been documented in the HPI. Review of Systems: CONST: Denies fever EYES: Denies blurry vision ENT: Denies nasal congestion C/V: Denies Chest pain RESP: Denies shortness of breath GI: Endorses left flank pain : Denies dysuria SKIN: Denies rash. MSK: Denies joint pain. NEURO: Denies headache ROS Other: All systems not noted in ROS Statement are negative. Past Medical History Past Medical History: Asthma, Seizure Disorder Additional Past Medical History / Comment(s): CHRONIC LEFT KNEE PAINlast seizure 10/2021, hypoglycemia, hx of kidney stones, arthritis in left knee. SEASONAL ALLERGIES. History of Any Multi-Drug Resistant Organisms: None Reported Past Surgical History: Section, Cholecystectomy, Joint Replacement Additional Past Surgical History / Comment(s): 2 c- section, ureteral stent to help pass stones. TLK Past Anesthesia/Blood Transfusion Reactions: No Reported Reaction Past Psychological History: No Psychological Hx Reported Smoking Status: Former smoker Past Alcohol Use History: None Reported Past Drug Use History: None Reported - Past Family History Mother Family Medical History: Asthma, Hypertension Additional Family Medical History / Comment(s): kidney failure Father History Unknown: Yes General Exam - General Exam Comments Initial Comments: General: Appears in no acute distress. HEAD: Normal with no signs of head trauma. EYES: EOMI ENT: Hearing grossly intact, normal oropharynx. RESPIRATORY: Clear breath sounds bilaterally. No wheezes, rales, or rhonchi. C/V: Regular rate and rhythm. S1 and S2 auscultated, peripheral pulses 2+ and intact throughout ABD: Abdomen soft, nondistended. Tender palpation left flank as well as left CVA to percussion. No guarding or rebound tenderness. No peritoneal signs. EXT: No obvious deformity SKIN: No rashes or lesions observed on exposed skin. NEURO: Alert and oriented x 4. Limitations: no limitations Course Vital Signs 09/12/24 09/12/24 09:37 13:13 Temperature 98.4 F Pulse Rate 86 62 Respiratory 16 16 Rate Blood Pressure 125/71 106/65 O2 Sat by Pulse 97 97 Oximetry Medical Decision Making - Medical Decision Making Was pt. sent in by a medical professional or institution (BETHEL Everett, CLINICAL INFORMATICIST, urgent care, hospital, or care home...) When possible be specific @ -No Did you speak to anyone other than the patient for history (EMS, parent, family, police, friend...)? What history was obtained from this source @ -No Did you review nursing and triage notes (agree or disagree)? Why? @ -I reviewed and agree with nursing and triage notes Were old charts reviewed (outside hosp., previous admission, EMS record, old EKG, old radiological studies, urgent care reports/EKG's, care home records)? Report findings @ -No old charts were reviewed Differential Diagnosis (chest pain, altered mental status, abdominal pain women, abdominal pain men, vaginal bleeding, weakness, fever, dyspnea, syncope, headache, dizziness, GI bleed, back pain, seizure, CVA, palpatations, mental health, musculoskeletal)? @ -Differential Abdominal Pain Women: Appendicitis, Cholecystitis, diverticulosis, ischemic bowel, pancreatitis, hepatitis, UTI, gastroenteritis, AAA, incarcerated hernia, bowel obstruction, constipation, inflammatory bowel, hepatitis, peptic ulcer disease, splenic infarction, perforated viscus, vulvitis, ovarian torsion, PID, kidney stone, placenta abruption, this is not meant to be an all-inclusive list EKG interpreted by me (3pts min.). @ -None done X-rays interpreted by me (1pt min.). @ -None done CT interpreted by me (1pt min.). @ -CT abdomen pelvis shows mild left hydro ureteral nephrosis with obstructing 5 mm calculus in the left mid ureter as well as additional intrarenal calculi measuring 9 mm and 2 mm. U/S interpreted by me (1pt. min.). @ -None done What testing was considered but not performed or refused? (CT, X-rays, U/S, labs)? Why? @ -None What meds were considered but not given or refused? Why? @ -None Did you discuss the management of the patient with other professionals (professionals i.e. Dr., PA, CLINICAL INFORMATICIST, lab, RT, psych nurse, older adult social work specialist, typewriter assembly and parts inspector, teacher, staff air tactical officer, gearcase assembler)? Give summary @ -Discussed with Dr. Francois who accepted consult but asked for medicine admission. Spoke with Dr. Teran of [facility] who accepted the medical admission. Patient made NPO. Was smoking cessation discussed for >3mins.? @ -No Was critical care preformed (if so, how long)? @ -No Were there social determinants of health that impacted care today? How? (Homelessness, low income, unemployed, alcoholism, drug addiction, transportation, low edu. Level, literacy, decrease access to med. care, custodial, rehab)? @ -No Was there de-escalation of care discussed even if they declined (Discuss DNR or withdrawal of care, Hospice)? DNR status @ -No What co-morbidities impacted this encounter? (DM, HTN, Smoking, COPD, CAD, Cancer, CVA, ARF, Chemo, Hep., AIDS, mental health diagnosis, sleep apnea, morbid obesity)? @ -None Was patient admitted / discharged? Hospital course, mention meds given and route, prescriptions, significant lab abnormalities, going to OR and other pertinent info. @ -Patient presents with intractable left flank pain and continued urinary symptoms despite UTI treatment. Likely failed outpatient antibiotic therapy. We will obtain workup to evaluate for kidney stone. She was in agreement this plan. Vitals are within acceptable limits. Given IV fluids as well as a nalgesia medications. CT shows an obstructing left-sided 5 mm ureterolithiasis. Labs remarkable for concerning findings of UTI. I discussed results with the patient. She will be started on IV cefepime. I spoke with urology, Dr. Francois who thinks he will likely place a stent and asked the patient be made n.p.o. Patient will be admitted to medicine at his request and Dr. Teran accepted the patient. Patient was in agreement this plan. Undiagnosed new problem with uncertain prognosis? @ -No Drug Therapy requiring intensive monitoring for toxicity (Heparin, Nitro, Insulin, Cardizem)? @ -No Were any procedures done? @ -No Diagnosis/symptom? @ -UTI, left ureteral lithiasis Acute, or Chronic, or Acute on Chronic? @ -Acute Uncomplicated (without systemic symptoms) or Complicated (systemic symptoms)? @ -Complicated Side effects of treatment? @ -No Exacerbation, Progression, or Severe Exacerbation? @ -No Poses a threat to life or bodily function? How? (Chest pain, USA, OR, pneumonia, PE, COPD, DKA, ARF, appy, cholecystitis, CVA, Diverticulitis, Homicidal, Suicidal, threat to staff... and all critical care pts) @ -Yes - Lab Data Result diagrams: 09/12/24 10:18 09/12/24 10:18 Lab Results 09/12/24 09/12/24 09/12/24 Range/Units 09:53 10:18 10:18 WBC 8.15 (4.50-10.00) 10*3/uL RBC 4.41 (4.10-5.20) 10*6/uL Hgb 14.4 (12.0-15.0) g/dL Hct 41.0 (37.2-46.3) % MCV 93.0 (80.0-97.0) fL MCH 32.7 H (27.0-32.0) pg MCHC 35.1 (32.0-37.0) g/dL Plt Count 255 (140-440) 10*3/uL MPV 9.4 L (9.5-12.2) fL Immature Gran % (Auto) 0.2 % Neutrophils % 68.3 % Lymphocytes % 20.4 % Monocytes % 8.6 % Eosinophils % 2.0 % Basophils % 0.5 % Immature Gran # 0.02 (0.00-0.04) 10*3/uL Neutrophils # 5.57 (1.80-7.70) 10*3/uL Lymphocytes # 1.66 (0.90-5.00) 10*3/uL Monocytes # 0.70 (0.20-1.00) 10*3/uL Eosinophils # 0.16 (0.04-0.35) 10*3/uL Basophils # 0.04 (0.00-0.10) 10*3/uL Sodium 140 (137-145) mmol/L Potassium 4.5 (3.5-5.1) mmol/L Chloride 109 H (98-107) mmol/L Carbon Dioxide 21 L (22-30) mmol/L Anion Gap 10 mmol/L BUN 24 H (7-17) mg/dL Creatinine 1.05 H (0.52-1.04) mg/dL Est GFR (CKD-EPI)AfAm 69 (>60 ml/min/1.73 sqM) Est GFR (CKD-EPI)NonAf 60 (>60 ml/min/1.73 sqM) Glucose 81 (74-99) mg/dL Plasma Lactic Acid [place] (0.7-2.0) mmol/L Calcium 10.0 (8.4-10.2) mg/dL Total Bilirubin 1.1 (0.2-1.3) mg/dL AST 22 (14-36) U/L ALT 13 (4-34) U/L Alkaline Phosphatase 107 (38-126) U/L Total Protein 7.6 (6.3-8.2) g/dL Albumin 4.3 (3.5-5.0) g/dL Amylase 73 (30-110) U/L Lipase 111 (23-300) U/L Urine Color Yellow Urine Appearance Cloudy H (Clear) Urine pH 5.5 (5.0-8.0) Ur Specific [place] 1.021 (1.001-1.035) Urine Protein Trace H (Negative) Urine Glucose (UA) Negative (Negative) Urine Ketones Negative (Negative) Urine Blood Trace H (Negative) Urine Nitrite Negative (Negative) Urine Bilirubin Negative (Negative) Urine Urobilinogen <2.0 (<2.0) mg/dL Ur Leukocyte Esterase Large H (Negative) Urine RBC 13 H (0-5) /hpf Urine WBC 179 H (0-5) /hpf Ur Squamous Epith Cells 3 (0-4) /hpf Hyaline Casts 1 (0-2) /lpf Urine Mucus Few H (None) /hpf 09/12/24 Range/Units 10:18 WBC (4.50-10.00) 10*3/uL RBC (4.10-5.20) 10*6/uL Hgb (12.0-15.0) g/dL Hct (37.2-46.3) % MCV (80.0-97.0) fL MCH (27.0-32.0) pg MCHC (32.0-37.0) g/dL Plt Count (140-440) 10*3/uL MPV (9.5-12.2) fL Immature Gran % (Auto) % Neutrophils % % Lymphocytes % % Monocytes % % Eosinophils % % Basophils % % Immature Gran # (0.00-0.04) 10*3/uL Neutrophils # (1.80-7.70) 10*3/uL Lymphocytes # (0.90-5.00) 10*3/uL Monocytes # (0.20-1.00) 10*3/uL Eosinophils # (0.04-0.35) 10*3/uL Basophils # (0.00-0.10) 10*3/uL Sodium (137-145) mmol/L Potassium (3.5-5.1) mmol/L Chloride (98-107) mmol/L Carbon Dioxide (22-30) mmol/L Anion Gap mmol/L BUN (7-17) mg/dL Creatinine (0.52-1.04) mg/dL Est GFR (CKD-EPI)AfAm (>60 ml/min/1.73 sqM) Est GFR (CKD-EPI)NonAf (>60 ml/min/1.73 sqM) Glucose (74-99) mg/dL Plasma Lactic Acid [place] 1.0 (0.7-2.0) mmol/L Calcium (8.4-10.2) mg/dL Total Bilirubin (0.2-1.3) mg/dL AST (14-36) U/L ALT (4-34) U/L Alkaline Phosphatase (38-126) U/L Total Protein (6.3-8.2) g/dL Albumin (3.5-5.0) g/dL Amylase (30-110) U/L Lipase (23-300) U/L Urine Color Urine Appearance (Clear) Urine pH (5.0-8.0) Ur Specific [place] (1.001-1.035) Urine Protein (Negative) Urine Glucose (UA) (Negative) Urine Ketones (Negative) Urine Blood (Negative) Urine Nitrite (Negative) Urine Bilirubin (Negative) Urine Urobilinogen (<2.0) mg/dL Ur Leukocyte Esterase (Negative) Urine RBC (0-5) /hpf Urine WBC (0-5) /hpf Ur Squamous Epith Cells (0-4) /hpf Hyaline Casts (0-2) /lpf Urine Mucus (None) /hpf - EKG Data -: EKG Interpreted by Me EKG Comments: 12-lead Electrocardiogram Interpretation Note EKG was reviewed and interpreted by myself. 12-lead ECG performed at 1014 is interpreted by me as revealing normal sinus rhythm at a rate of 62 beats per minute. Calder is normal. NE interval is 127 ms, QRS duration is 86 ms, QTc is 387 ms.. There were no ST or T wave abnormalities to suggest myocardial ischemia or injury. R wave progression across the precordium was satisfactory. By my interpretation this EKG is non-diagnostic for acute ischemia. Disposition Clinical Impression: UTI (urinary tract infection), Ureterolithiasis Disposition: ADMITTED IP TO THIS HOSP Condition: Stable Time of Disposition: 11:56
--- NOTE | 2024-09-12 12:35 | P.GSCN ---
History of Present Illness Consult date: 09/12/24 Reason for Consult: Left ureteral stone History of present illness: This is a 54-year-old female with history of recurrent kidney stones, previous history of stent insertion left ureteroscopy and PCNL. She also indicated she has a history of retained stent. Presented to the hospital with intractable left flank pain associated with nausea. Denies any gross hematuria or dysuria. She underwent a CT abdomen and pelvis that showed evidence of a 5 mm left-sided mid ureteral stone, an 8 mm left-sided renal pelvic stone. Urinalysis is ze rning for UTI. She is hemodynamically stable. She was placed on p.o. antibiotics as an outpatient for possible UTI. This morning on evaluation she continues to have left flank pain Review of Systems - Constitutional Denies fever, Denies weight loss - Cardiovascular Denies chest pain, Denies shortness of breath - Respiratory Denies cough, Denies 7 - Gastrointestinal Reports abdominal pain, Reports nausea, Denies vomiting - Genitourinary Genitourinary: Reports flank pain, Denies dysuria, Denies hematuria Past Medical History Past Medical History: Asthma, Seizure Disorder Additional Past Medical History / Comment(s): CHRONIC LEFT KNEE PAINlast seizure 10/2021, hypoglycemia, hx of kidney stones, arthritis in left knee. SEASONAL ALLERGIES. History of Any Multi-Drug Resistant Organisms: None Reported Past Surgical History: Section, Cholecystectomy, Joint Replacement Additional Past Surgical History / Comment(s): 2 c- section, ureteral stent to help pass stones. TLK Past Anesthesia/Blood Transfusion Reactions: No Reported Reaction Past Psychological History: No Psychological Hx Reported Smoking Status: Former smoker Past Alcohol Use History: None Reported Past Drug Use History: None Reported - Past Family History Mother Family Medical History: Asthma, Hypertension Additional Family Medical History / Comment(s): kidney failure Father History Unknown: Yes Medications and Allergies Home Medications Medication Instructions Recorded Confirmed Type Albuterol Inhaler [Ventolin Hfa 2 puff INHALATION RT-Q6H PRN 03/15/22 09/12/24 History Inhaler] levETIRAcetam [Keppra] 500 mg PO BID 03/15/22 09/12/24 History Montelukast [Singulair] 10 mg PO HS PRN 09/25/22 09/12/24 History Budesonide/Formoterol Fumarate 2 puff INHALATION RT-BID 09/12/24 09/12/24 History [Symbicort 80-4.5 Mcg Inhaler] Cholecalciferol (Vitamin D3) 50 mcg PO DAILY 09/12/24 09/12/24 History [Vitamin D3 (50 Mcg = 2000 Iu)] Ciprofloxacin HCl [Cipro] 500 mg PO Q12HR 09/12/24 09/12/24 History Fluticasone Nasal [place] [Flonase 1 spray EA NOSTRIL BID PRN 09/12/24 09/12/24 History Nasal [place]] Multivitamins, Thera [Multivitamin 1 tab PO DAILY 09/12/24 09/12/24 History (formulary)] Sulfamethox-Tmp 800-160Mg [Bactrim 1 tab PO Q12HR 09/12/24 09/12/24 History DS 800-160 mg] oxyCODONE HCL/ACETAMINOPHEN 1 tab PO Q6H PRN 09/12/24 09/12/24 History [oxyCODONE HCL/ACETAMINOPHEN 7.5-325] rOPINIRole HCL [Requip] 2 mg PO BID 09/12/24 09/12/24 History Allergies Allergy/AdvReac Type Severity Reaction Status Date / Time morphine Allergy Rash/Hives/ Verified 09/12/24 11:31 Swelling Surgical - Exam Vital Signs Temp Pulse Resp BP Pulse Ox 98.4 F 86 16 125/71 97 09/12/24 09:37 09/12/24 09:37 09/12/24 09:37 09/12/24 09:37 09/12/24 09:37 - General no distress, moderate pain - Eyes normal ocular movement, no pale - ENT normal nares, normal mucosa - Respiratory normal expansion, normal respiratory effort - Abdomen Abdomen: soft, tender (Left flank), no distended - Psychiatric oriented to time, oriented to person, oriented to place, speech is normal Results - Labs 09/12/24 10:18 09/12/24 10:18 Abnormal Lab Results - Last 24 Hours (Table) 09/12/24 09/12/24 09/12/24 Range/Units 09:53 10:18 10:18 MCH 32.7 H (27.0-32.0) pg MPV 9.4 L (9.5-12.2) fL Chloride 109 H (98-107) mmol/L Carbon Dioxide 21 L (22-30) mmol/L BUN 24 H (7-17) mg/dL Creatinine 1.05 H (0.52-1.04) mg/dL Urine Appearance Cloudy H (Clear) Urine Protein Trace H (Negative) Urine Blood Trace H (Negative) Ur Leukocyte Esterase Large H (Negative) Urine RBC 13 H (0-5) /hpf Urine WBC 179 H (0-5) /hpf Urine Mucus Few H (None) /hpf Diabetes panel 09/12/24 Range/Units 10:18 Sodium 140 (137-145) mmol/L Potassium 4.5 (3.5-5.1) mmol/L Chloride 109 H (98-107) mmol/L Carbon Dioxide 21 L (22-30) mmol/L BUN 24 H (7-17) mg/dL Creatinine 1.05 H (0.52-1.04) mg/dL Glucose 81 (74-99) mg/dL Calcium 10.0 (8.4-10.2) mg/dL AST 22 (14-36) U/L ALT 13 (4-34) U/L Alkaline Phosphatase 107 (38-126) U/L Total Protein 7.6 (6.3-8.2) g/dL Albumin 4.3 (3.5-5.0) g/dL Calcium panel 09/12/24 Range/Units 10:18 Calcium 10.0 (8.4-10.2) mg/dL Albumin 4.3 (3.5-5.0) g/dL Pituitary panel 09/12/24 Range/Units 10:18 Sodium 140 (137-145) mmol/L Potassium 4.5 (3.5-5.1) mmol/L Chloride 109 H (98-107) mmol/L Carbon Dioxide 21 L (22-30) mmol/L BUN 24 H (7-17) mg/dL Creatinine 1.05 H (0.52-1.04) mg/dL Glucose 81 (74-99) mg/dL Calcium 10.0 (8.4-10.2) mg/dL Adrenal panel 09/12/24 Range/Units 10:18 Sodium 140 (137-145) mmol/L Potassium 4.5 (3.5-5.1) mmol/L Chloride 109 H (98-107) mmol/L Carbon Dioxide 21 L (22-30) mmol/L BUN 24 H (7-17) mg/dL Creatinine 1.05 H (0.52-1.04) mg/dL Glucose 81 (74-99) mg/dL Calcium 10.0 (8.4-10.2) mg/dL Total Bilirubin 1.1 (0.2-1.3) mg/dL AST 22 (14-36) U/L ALT 13 (4-34) U/L Alkaline Phosphatase 107 (38-126) U/L Total Protein 7.6 (6.3-8.2) g/dL Albumin 4.3 (3.5-5.0) g/dL Assessment and Plan Assessment: 54-year-old female with history of 5 mm left-sided mid ureteral stone, an 8 mm left-sided renal pelvic stone. She is symptomatic from her stone and UA is consistent with a UTI. Discussed given these findings option of left-sided stent insertion. Discussed risk-benefit and rationale in details. Discussed the stent cannot stay in permanently and will need to be removed eventually. Discussed once her UTI resolves she will be set up as an outpatient for left- sided ureteroscopy with holmium laser and stent removal. N.p.o. OR for cystoscopy and a left stent insertion
--- NOTE | 2024-09-12 13:11 | P.HPIM ---
History of Present Illness H&P Date: 09/12/24 History of Presenting Illness: Patient is a very pleasant 54-year-old female with a past medical history of asthma/COPD not home oxygen dependent, seizure disorder on Keppra, and recurrent kidney stones. She presented to the emergency department with a chief complaint of left-sided flank pain. She was undergoing treatment for pyelonephritis outpatient with ciprofloxacin and Bactrim with no relief and only worsening of symptoms. Patient reports experiencing left-sided flank pain accompanied by nausea with episode of vomiting this morning, and urinary frequency. She denies having any urinary urgency, hematuria, or dysuria and denies having any fevers, chills, diaphoresis, chest pain, palpitations, shortness of breath, difficulties with or changes in bowel function, or experiencing any numbness/tingling/weakness/swelling in her extremities. Upon arrival to our facility, patient underwent evaluation in the emergency department. Vital signs upon arrival show blood pressure 125/71, heart rate 86, respiratory rate 16, temp 98.4 F, and SpO2 of 97% on room air. EKG was completed showing normal sinus rhythm at 62 bpm with no significant T wave or ST abnormality showing no signs of acute ischemia upon personal review and interpretation. Labs completed and reviewed. CBC showing MCH of 32.7 and MPV of 9.4. BMP showing non-anion gap metabolic acidosis with chloride of 109, bicarb of 21, and anion gap of 10 with slight elevation of renal function with BUN of 24, creatinine 1.05, GFR of 60 with baseline creatinine of 0.73. CT abdomen and pelvis showing mild left hydronephrosis with an obstructing 5 mm calculus in the mid left ureter a dditionally 9 mm calculus within the left renal pelvis and nonobstructing 2 mm calculus within the left kidney along with colonic diverticulosis without evidence for acute diverticulitis. ED physician discussed case with urologist, Dr. Francois requesting patient to be started on IV antibiotics with cefepime 2 g every 8 hours and admitted to medicine services with urology on consult. Patient admitted under services at this time with plans to undergo cystoscopy with stent placement later today with Dr. Francois. Review of systems: Pertinent positives and negatives as discussed in HPI, a complete review of systems was performed and all other systems are negative. Physical exam: Vital signs reviewed and stable. General: Nontoxic, no distress and appears stated age. Derm: Skin warm and dry, normal coloration for ethnicity. Head: Atraumatic, normocephalic and symmetric. Eyes: EOM's intact, no lid lag, and anicteric sclera Mouth: no lip lesions, mucus membranes moist Cardiovascular: regular rate and rhythm with normal S1S2, no murmur, positive posterior tibial pulses bilaterally, and cap refill < 2 seconds. Lungs: Respirations even, regular, and unlabored on room air. Lungs CTA bilaterally, no rhonchi, no rales, no wheezing, and no accessory muscle usage. Abdominal: soft, nontender to palpation, no guarding, no appreciable organomegaly. Left CVA tenderness, mild suprapubic tenderness on palpation. Ext: ROM intact. No gross muscle atrophy, no edema, no contractures Neuro: Speech clear, face symmetrical and CN II-XII grossly intact with no noted focal neuro deficits Psych: Alert and oriented to person, place, time, and situation. Appropriate and pleasant affect. Assessment and Plan of Care: Pyelonephritis Obstructive left ureteral calculus with hydronephrosis Acute kidney injury - Urology consulted planning to take patient for cystoscopy with stent placement later today. - Continue IV antibiotics with cefepime 2 g every 8 hours. - Follow-up with urine culture and blood culture results. - Continued close monitoring of renal function with repeat a.m. labs. - Continue IV fluid hydration with 0.9% normal saline at 100 cc/h.- - Symptomatic care and pain management. Zofran 4 mg IVP every 8 hours as needed for nausea and vomiting. Tylenol 650 mg every 6 hours as needed for mild pain and/or fever, Percocet 7.5/325 mg tablets every 6 hours as needed for moderate pain, and Dilaudid 0.5 mg IVP every 4 hours as needed for severe breakthrough pain. - Bladder scan as needed to monitor for postvoid residual/retention - Monitor I's and O's COPD not in acute exacerbation -Patient to be provided with supplemental oxygen as needed to maintain SpO2 equal to or greater than 92%. -Continue Ventolin nebulizer treatments every 6 hours as needed for shortness of breath and/or wheezing. Continue Symbicort 80-4.5 mcg inhaler 2 puffs twice daily and Singulair 10 mg nightly. -Encourage use of incentive spirometer 10-15 times hourly while awake. Seizure disorder -Maintain seizure precautions and continue Keppra 500 mg twice daily. Data and imaging reviewed: As stated above in HPI. The patient is admitted with an anticipated greater than 2 midnight stay for evaluation of pyelonephritis and obstructive left ureteral calculus with hydronephrosis CODE STATUS: Full code DVT prophylaxis: Lovenox Discussed with: Patient, RN, and ED physician Anticipated discharge date: Pending clinical course Anticipated discharge place: Pending clinical course, likely home Patient was seen independently by Nurse Practitioner. This document was prepared using [email or web address] dictation software. Please allow for errors in account solutions analyst while rare they do occur. Jasson Hart NP rendered care for this patient independently, reviewed the findings and plan as documented in the note above and agree with plan. I did not physically speak with or examine the patient on this date. Past Medical History Past Medical History: Asthma, Seizure Disorder Additional Past Medical History / Comment(s): CHRONIC LEFT KNEE PAINlast seizure 10/2021, hypoglycemia, hx of kidney stones, arthritis in left knee. SEASONAL ALLERGIES. History of Any Multi-Drug Resistant Organisms: None Reported Past Surgical History: Section, Cholecystectomy, Joint Replacement Additional Past Surgical History / Comment(s): 2 c- section, ureteral stent to help pass stones. TLK Past Anesthesia/Blood Transfusion Reactions: No Reported Reaction Past Psychological History: No Psychological Hx Reported Smoking Status: Former smoker Past Alcohol Use History: None Reported Past Drug Use History: None Reported - Past Family History Mother Family Medical History: Asthma, Hypertension Additional Family Medical History / Comment(s): kidney failure Father History Unknown: Yes Medications and Allergies Home Medications Medication Instructions Recorded Confirmed Type Albuterol Inhaler [Ventolin Hfa 2 puff INHALATION RT-Q6H PRN 03/15/22 09/12/24 History Inhaler] levETIRAcetam [Keppra] 500 mg PO BID 03/15/22 09/12/24 History Montelukast [Singulair] 10 mg PO HS PRN 09/25/22 09/12/24 History Budesonide/Formoterol Fumarate 2 puff INHALATION RT-BID 09/12/24 09/12/24 History [Symbicort 80-4.5 Mcg Inhaler] Cholecalciferol (Vitamin D3) 50 mcg PO DAILY 09/12/24 09/12/24 History [Vitamin D3 (50 Mcg = 2000 Iu)] Ciprofloxacin HCl [Cipro] 500 mg PO Q12HR 09/12/24 09/12/24 History Fluticasone Nasal [place] [Flonase 1 spray EA NOSTRIL BID PRN 09/12/24 09/12/24 History Nasal [place]] Multivitamins, Thera [Multivitamin 1 tab PO DAILY 09/12/24 09/12/24 History (formulary)] Sulfamethox-Tmp 800-160Mg [Bactrim 1 tab PO Q12HR 09/12/24 09/12/24 History DS 800-160 mg] oxyCODONE HCL/ACETAMINOPHEN 1 tab PO Q6H PRN 09/12/24 09/12/24 History [oxyCODONE HCL/ACETAMINOPHEN 7.5-325] rOPINIRole HCL [Requip] 2 mg PO BID 09/12/24 09/12/24 History Allergies Allergy/AdvReac Type Severity Reaction Status Date / Time morphine Allergy Rash/Hives/ Verified 09/12/24 11:31 Swelling Physical Exam Vitals: Vital Signs Temp Pulse Resp BP Pulse Ox 09/12/24 09:37 98.4 F 86 16 125/71 97 Intake and Output 09/11/24 09/12/24 09/12/24 22:59 06:59 14:59 Other: Weight 94.347 kg Results CBC & Chem 7: 09/12/24 10:18 09/12/24 10:18 Labs: Abnormal Lab Results - Last 24 Hours (Table) 09/12/24 09/12/24 09/12/24 Range/Units 09:53 10:18 10:18 MCH 32.7 H (27.0-32.0) pg MPV 9.4 L (9.5-12.2) fL Chloride 109 H (98-107) mmol/L Carbon Dioxide 21 L (22-30) mmol/L BUN 24 H (7-17) mg/dL Creatinine 1.05 H (0.52-1.04) mg/dL Urine Appearance Cloudy H (Clear) Urine Protein Trace H (Negative) Urine Blood Trace H (Negative) Ur Leukocyte Esterase Large H (Negative) Urine RBC 13 H (0-5) /hpf Urine WBC 179 H (0-5) /hpf Urine Mucus Few H (None) /hpf
[2024-09-12] MEDS ORDERED: MONTELUKAST 10 MG TAB PO PRN (13:12)
[2024-09-12] MEDS: SODIUM CHLORIDE 0.9% 1,000 ML IV STA (13:15)
[2024-09-12] MEDS: IV FLUID CONTINUATION 1,000 ML IV ONE (13:25)
[2024-09-12] MEDS ORDERED: fentaNYL (PF) 50 MCG/ML 2 ML AMP ONE (14:09)
[2024-09-12] MEDS ORDERED: PHENYLEPHRINE-0.9% NACL SYG 1,000 MCG/10 ML SYRINGE ONE (14:09)
[2024-09-12] MEDS ORDERED: PROPOFOL 10 MG/ML 20 ML VIAL IV ONE (14:09)
[2024-09-12] MEDS ORDERED: MIDAZOLAM 2 MG/2 ML VIAL ONE (14:09)
[2024-09-12] MEDS: SODIUM CHLORIDE 0.9% 100 ML with ceFAZolin 2,000 MG IV ONE (14:32)
--- NOTE | 2024-09-12 14:44 | P.OP ---
Date of Procedure: 09/12/24 Preoperative Diagnosis: Left ureteral stone Postoperative Diagnosis: Same Procedure(s) Performed: Cystoscopy and a left stent insertion Implants: 6 [place] by 24 cm stent in the left ureter Anesthesia: MAC Surgeon: Bernardo Francois Estimated Blood Loss (ml): 1 Pathology: none sent Condition: stable Disposition: PACU Indications for Procedure: This is a 54-year-old female with a history of 5 mm left-sided mid ureteral stone and 8 mm left-sided renal pelvic stone, she is having intractable pain secondary to her stone also UA is concerning for UTI. Option of left-sided stent insertion was discussed with her in detail. She is aware of the risk which include but not limited to bleeding, infection, injury to the ureter. Discussed also that this is not a definitive stone management she will eventually require left-sided ureteroscopy with holmium laser and stent removal. Risk of stent encrustation was discussed Description of Procedure: Patient brought the operating room, dry anesthesia was induced. She was prepped and draped in sterile fashion placed in dorsolithotomy position. Cystoscopy through the 22 [place] sheath was inserted per urethra, cystoscopy was performed showed no abnormality within the bladder. Of note on cystoscopy was consistent with evidence of cystitis. The left ureteral orifice was identified and intubated with a sensor wire, the wire was advanced under fluoroscopy into the kidney. Next a ureteral stent was passed over the wire, the proximal curl was visualized on fluoroscopy and the distal curl was visualized in the cystoscope. Hydronephrotic drip was seen. Patient was awakened from anesthesia and taken to recovery in stable condition
[2024-09-12] MEDS: LACTATED RINGERS 1,000 ML IV ONE ×2 (14:49→14:52)
--- NOTE | 2024-09-12 15:30 | FL ---
EXAMINATION TYPE: FL guidance operating room DATE OF EXAM: 09/12/2024 CLINICAL INDICATION: Female, 54 years old with history of Ureteral Stent Insertion, kidney stone TECHNIQUE: Fluoroscopy. COMPARISON: CT abdomen and pelvis earlier today.. FINDINGS: Fluoroscopic guidance was provided during ureter stent insertion procedure performed by ur ologist. A total of 4.6 seconds of fluoroscopic time was utilized during the procedure and 1 spot im ages was acquired. TOTAL DAP = 0.3634 Gycm2. IMPRESSION: As Above. [facility], , 09/12/2024 3:28 PM
[2024-09-12] MEDS ORDERED: ACETAMINOPHEN TAB 325 MG TAB PO PRN (18:02)
[2024-09-12] MEDS: ALBUTEROL NEBULIZED 2.5 MG/3 ML INHALATION PRN (19:49)
[2024-09-12] MEDS: SYMBICORT 80-4.5 MCG INHALER INHALATION SCH (19:49)
[2024-09-12] MEDS: levETIRAcetam 500 MG TAB PO SCH (20:41)
[2024-09-13] MEDS: oxyCODONE-APAP 7.5-325MG 1 EACH TAB PO PRN (01:30)
[2024-09-13] MEDS: ONDANSETRON 4 MG/2 ML VIAL IVP PRN (01:31)
[2024-09-13] MEDS: ENOXAPARIN 40 MG/0.4 ML SYRINGE SQ SCH (08:33)
[2024-09-13] MEDS: MULTIVITAMINS, THERA 1 EACH TAB PO SCH (08:34)
[2024-09-13 10:41] LABS: Basophils # (A) 0.03 X 10*3/uL (0.00-0.10); Basophils % (A) 0.3 %; Eosinophils # (A) 0.03 X 10*3/uL (0.04-0.35); Eosinophils % (A) 0.3 %; HCT 36.4 % (37.2-46.3); HGB 11.8 g/dL (12.0-15.0); Lymphocytes % (A) 17.1 %; MCHC 32.4 g/dL (32.0-37.0); MCV 95.5 FL (80.0-97.0); Mean Platelet Volume 10.2 FL (9.5-12.2); Monocytes # (A) 0.84 X 10*3/uL (0.20-1.00); NRBC Per 100 WBC 0 X 10*3/uL (0.00-0.01); Neutrophils # (A) 6.82 X 10*3/uL (1.80-7.70); Platelet Count 194 X 10*3/uL (140-440); RBC 3.81 X 10*6/uL (4.10-5.20); RDW 12.7 % (11.5-14.5); WBC 9.35 X 10*3/uL (4.50-10.00)
[2024-09-13 11:02] LABS: ALT 8 U/L (8-44); AST 15 U/L (13-35); Albumin 3.4 g/dL (3.8-4.9); Albumin/Globulin Ratio 1.42 Ratio (1.60-3.17); Alkaline Phosphatase 96 U/L (41-126); Calcium 8.7 mg/dL (8.7-10.3); Carbon Dioxide 17.6 mmol/L (21.6-31.8); Chloride 109 mmol/L (96-109); Globulin 2.4 g/dL (1.6-3.3); Glucose 94 mg/dL (70-110); Potassium 5.1 mmol/L (3.5-5.5); Sodium 136 mmol/L (135-145); Total Bilirubin 0.3 mg/dL (0.3-1.2); Total Protein 5.8 g/dL (6.2-8.2)
--- NOTE | 2024-09-13 17:24 | P.PN ---
Subjective Progress Note Date: 09/13/24 Hospital Course: Patient is a very pleasant 54-year-old female with a past medical history of asthma/COPD not home oxygen dependent, seizure disorder on Keppra, and recurrent kidney stones. She presented to the emergency department with a chief complaint of left-sided flank pain. She was undergoing treatment for pyelonephritis outpatient with ciprofloxacin and Bactrim with no relief and only worsening of symptoms. Patient reports experiencing left-sided flank pain accompanied by nausea with episode of vomiting this morning, and urinary frequency. She denies having any urinary urgency, hematuria, or dysuria and denies having any fevers, chills, diaphoresis, chest pain, palpitations, shortness of breath, difficulties with or changes in bowel function, or experiencing any numbness/tingling/weakness/swelling in her extremities. Upon arrival to our [facility], patient underwent evaluation in the emergency department. Vital signs upon arrival show blood pressure 125/71, heart rate 86, respiratory rate 16, temp 98.4 F, and SpO2 of 97% on room air. EKG was completed showing normal sinus rhythm at 62 bpm with no significant T wave or ST abnormality showing no signs of acute ischemia upon personal review and interpretation. Labs completed and reviewed. CBC showing MCH of 32.7 and MPV of 9.4. BMP showing non-anion gap metabolic acidosis with chloride of 109, bicarb of 21, and anion gap of 10 with slight elevation of renal function with BUN of 24, creatinine 1.05, GFR of 60 with baseline creatinine of 0.73. CT abdomen and pelvis showing mild left hydronephrosis with an obstructing 5 mm calculus in the mid left ureter additionally 9 mm calculus within the left renal pelvis and nonobstructing 2 mm calculus within the left kidney along with colonic diverticulosis without evidence for acute diverticulitis. ED physician discussed case with urologist, Dr. Francois requesting patient to be started on IV antibiotics with cefepime 2 g every 8 hours and admitted to medicine services with urology on consult. Patient admitted under services and underwent cystoscopy with stent placement on 09/12/[address] Francois. Physical exam: Patient is seen and fully evaluated at bedside this morning. She is postop day 1 status post cystoscopy with stent placement. She currently reports no improvement in left flank pain and currently rates 8 out of 10 at this time. She denies having any further episodes of nausea or vomiting. She is tolerating oral intake. Vital signs reviewed and stable. General: Nontoxic, no distress and appears stated age. Derm: Skin warm and dry, normal coloration for ethnicity. Head: Atraumatic, normocephalic and symmetric. Eyes: EOM's intact, no lid lag, and anicteric sclera Mouth: no lip lesions, mucus membranes moist Cardiovascular: regular rate and rhythm with normal S1S2, no murmur, positive posterior tibial pulses bilaterally, and cap refill < 2 seconds. Lungs: Respirations even, regular, and unlabored on room air. Lungs CTA bilaterally, no rhonchi, no rales, no wheezing, and no accessory muscle usage. Abdominal: soft, nontender to palpation, no guarding, no appreciable organomegaly. Left CVA tenderness, mild suprapubic tenderness on palpation. Ext: ROM intact. No gross muscle atrophy, no edema, no contractures Neuro: Speech clear, face symmetrical and CN II-XII grossly intact with no noted focal neuro deficits Psych: Alert and oriented to person, place, time, and situation. Appropriate and pleasant affect. Assessment and Plan of Care: Pyelonephritis Obstructive left ureteral calculus with hydronephrosis Acute kidney injury - Urology consulted planning to take patient for cystoscopy with stent placement later today. - Continue IV antibiotics with cefepime 2 g every 8 hours. - Blood cultures showing no growth to date. Urine culture remains pending. - Continued close monitoring of renal function with repeat a.m. labs. - Continue IV fluid hydration with 0.9% normal saline at 100 cc/h.- - Symptomatic care and pain management. Zofran 4 mg IVP every 8 hours as needed for nausea and vomiting. Tylenol 650 mg every 6 hours as needed for mild pain and/or fever, Percocet 7.5/325 mg tablets every 6 hours as needed for moderate pain, and Dilaudid 0.5 mg IVP every 4 hours as needed for severe breakthrough pain. - Bladder scan as needed to monitor for postvoid residual/retention - Monitor I's and O's COPD not in acute exacerbation -Patient to be provided with supplemental oxygen as needed to maintain SpO2 equal to or greater than 92%. -Continue Ventolin nebulizer treatments every 6 hours as needed for shortness of breath and/or wheezing. Continue Symbicort 80-4.5 mcg inhaler 2 puffs twice daily and Singulair 10 mg nightly. -Encourage use of incentive spirometer 10-15 times hourly while awake. Seizure disorder -Maintain seizure precautions and continue Keppra 500 mg twice daily. Data and imaging reviewed: Morning labs reviewed. CBC showing hemoglobin 11.8. BMP showing hypocarbia with bicarb of 17.6 and prerenal azotemia with BUN of 28, creatinine 1.0, GFR of 66. Blood glucose was 94. Liver profile unremarkable with exception of low total protein of 5.8 and albumin of 3.4. Vital signs reviewed. Blood pressure soft this morning at 98/57, heart rate 53, respiratory rate 14, temp 97.6 F, and SpO2 of 96% on room air CODE STATUS: Full code DVT prophylaxis: Lovenox Discussed with: Patient and RN Anticipated discharge date: Pending clinical course Anticipated discharge place: Pending clinical course, likely home Patient was seen independently by Nurse Practitioner. This document was prepared using [employer] dictation software. Please allow for errors in supervisor lamp shades while rare they do occur. Jasson Hart NP rendered care for this patient independently, reviewed the findings and plan as documented in the note above and agree with plan. I did not physically speak with or examine the patient on this date Objective - Vital Signs Vital signs: Vital Signs Temp 97.6 F 09/13/24 07:20 Pulse 53 L 09/13/24 07:20 Resp 14 09/13/24 07:20 BP 98/57 09/13/24 07:20 Pulse Ox 96 09/13/24 07:20 FiO2 Intake & Output 09/12/24 09/13/24 09/13/24 18:59 06:59 18:59 Intake Total 1500 1080 100 Balance 1500 1080 100 Weight 94.347 kg Intake: IV 1500 Oral 1080 100 Other: Voiding Method Toilet Toilet Toilet - Labs CBC & Chem 7: 09/13/24 05:49 09/13/24 05:49 Labs: Abnormal Lab Results - Last 24 Hours (Table) 09/12/24 09/12/24 09/12/24 Range/Units 09:53 10:18 10:18 MCH 32.7 H (27.0-32.0) pg MPV 9.4 L (9.5-12.2) fL Chloride 109 H (98-107) mmol/L Carbon Dioxide 21 L (22-30) mmol/L BUN 24 H (7-17) mg/dL Creatinine 1.05 H (0.52-1.04) mg/dL Urine Appearance Cloudy H (Clear) Urine Protein Trace H (Negative) Urine Blood Trace H (Negative) Ur Leukocyte Esterase Large H (Negative) Urine RBC 13 H (0-5) /hpf Urine WBC 179 H (0-5) /hpf Urine Mucus Few H (None) /hpf
[2024-09-14 07:21] VITALS: BP 118/72; PULSE 52; RESP 16; TEMP 97.6
--- NOTE | 2024-09-14 09:56 | P.PN ---
Subjective Progress Note Date: 09/14/24 No acute overnight event, denies any flank pain. Urine culture showing contaminant Objective - Vital Signs Vital signs: Vital Signs Temp 97.6 F 09/14/24 07:05 Pulse 52 L 09/14/24 07:05 Resp 16 09/14/24 07:05 BP 118/72 09/14/24 07:05 Pulse Ox 99 09/14/24 07:05 FiO2 Intake & Output 09/13/24 09/14/24 09/14/24 18:59 06:59 18:59 Intake Total 218 540 240 Balance 218 540 240 Intake: Oral 218 540 240 Other: Voiding Method Toilet Toilet Toilet # Voids 5 2 # Bowel Movements 2 - Constitutional General appearance: Present: no acute distress - Gastrointestinal General gastrointestinal: Present: soft. Absent: distended, tenderness - Labs CBC & Chem 7: 09/13/24 05:49 09/13/24 05:49 Labs: Abnormal Lab Results - Last 24 Hours (Table) 09/13/24 09/13/24 Range/Units 05:49 05:49 RBC 3.81 L (4.10-5.20) X 10*6/uL Hgb 11.8 L (12.0-15.0) g/dL Hct 36.4 L (37.2-46.3) % Eosinophils # 0.03 L (0.04-0.35) X 10*3/uL Carbon Dioxide 17.6 L (21.6-31.8) mmol/L BUN 28.0 H (9.0-27.0) mg/dL BUN/Creatinine Ratio 28.00 H (12.00-20.00) Ratio Total Protein 5.8 L (6.2-8.2) g/dL Albumin 3.4 L (3.8-4.9) g/dL Albumin/Globulin Ratio 1.42 L (1.60-3.17) Ratio Microbiology - Last 24 Hours (Table) 09/12/24 09:53 Urine Culture - Final Urine,Voided 09/12/24 12:31 Blood Culture - Preliminary Blood Assessment and Plan Assessment: 54-year-old female with history of 5 mm left-sided mid ureteral stone, an 8 mm left-sided renal pelvic stone. She is status post cystoscopy with a left stent insertion on May 9. Urine culture is a contaminant - From urology standpoint she is okay for discharge, she will be set up for an outpatient left-sided ureteroscopy with holmium laser and stent removal
--- NOTE | 2024-09-14 12:30 | P.DS ---
Providers Date of admission: 09/12/24 11:55 Expected date of discharge: 09/14/24 Attending physician: Edison Teran Consults: 09/12/24 11:49 Consult Physician Stat Consulting Provider: Bernardo Francois Consult Reason/Comments: left ureterolithiasis, uti Do you want consulting provider notified?: Already Contacted Primary care physician: Omid Marks Hospital Course: Discharge Diagnosis: Obstructive left ureteral calculus with hydronephrosis. Patient admitted under services and underwent cystoscopy with stent placement on 09/12/[address] Francois. She received 2-day course of IV antibiotics with cefepime. Cultures showing no growth to date. Repeat urine culture this visit also showing normal gordo. Discussed with urologist recommending continuation of antibiotics with Ceftin 500 mg twice daily for 5 additional days. Pyelonephritis Acute kidney injury. Resolved COPD not in acute exacerbation Seizure disorder Hospital Course: Patient is a very pleasant 54-year-old female with a past medical history of asthma/COPD not home oxygen dependent, seizure disorder on Keppra, and recurrent kidney stones. She presented to the emergency department with a chief complaint of left-sided flank pain. She was undergoing treatment for pyelonephritis outpatient with ciprofloxacin and Bactrim with no relief and only worsening of symptoms. Patient reports experiencing left-sided flank pain accompanied by nausea with episode of vomiting this morning, and urinary frequency. She denies having any urinary urgency, hematuria, or dysuria and denies having any fevers, chills, diaphoresis, chest pain, palpitations, shortness of breath, difficulties with or changes in bowel function, or experiencing any nu mbness/tingling/weakness/swelling in her extremities. Upon arrival to our facility, patient underwent evaluation in the emergency department. Vital signs upon arrival show blood pressure 125/71, heart rate 86, respiratory rate 16, temp 98.4 F, and SpO2 of 97% on room air. EKG was completed showing normal sinus rhythm at 62 bpm with no significant T wave or ST abnormality showing no signs of acute ischemia upon personal review and interpretation. Labs completed and reviewed. CBC showing MCH of 32.7 and MPV of 9.4. BMP showing non-anion gap metabolic acidosis with chloride of 109, bicarb of 21, and anion gap of 10 with slight elevation of renal function with BUN of 24, creatinine 1.05, GFR of 60 with baseline creatinine of 0.73. CT abdomen and pelvis showing mild left hydronephrosis with an obstructing 5 mm calculus in the mid left ureter additionally 9 mm calculus within the left renal pelvis and nonobstructing 2 mm calculus within the left kidney along with colonic diverticulosis without evidence for acute diverticulitis. ED physician discussed case with urologist, Dr. Francois requesting patient to be started on IV antibiotics with cefepime 2 g every 8 hours and admitted to medicine services with urology on consult. Patient admitted under services and underwent cystoscopy with stent placement on 09/12/[address] Francois. Cultures showing no growth to date. Repeat urine culture this visit also showing normal gordo. Discussed with urologist recommending continuation of antibiotics with Ceftin 500 mg twice daily for 5 additional days. Patient reports left flank pain is fully resolved and currently denies having any nausea or vomiting. She is tolerating oral intake and urinating without any difficulties. Patient is medically optimized for discharge at this time and to follow-up outpatient with PCP in 1 to 2 days. Patient was also cleared from urology perspective recommending follow-up in their office in 1 to 2 weeks. Physical exam: Vital signs reviewed and stable. General: Nontoxic, no distress and appears stated age. Derm: Skin warm and dry, normal coloration for ethnicity. Head: Atraumatic, normocephalic and symmetric. Eyes: EOM's intact, no lid lag, and anicteric sclera Mouth: no lip lesions, mucus membranes moist Cardiovascular: regular rate and rhythm with normal S1S2, no murmur, positive posterior tibial pulses bilaterally, and cap refill < 2 seconds. Lungs: Respirations even, regular, and unlabored on room air. Lungs CTA bilaterally, no rhonchi, no rales, no wheezing, and no accessory muscle usage. Abdominal: soft, nontender to palpation, no guarding, no appreciable organomegaly. Left CVA tenderness, mild suprapubic tenderness on palpation. Ext: ROM intact. No gross muscle atrophy, no edema, no contractures Neuro: Speech clear, face symmetrical and CN II-XII grossly intact with no noted focal neuro deficits Psych: Alert and oriented to person, place, time, and situation. Appropriate and pleasant affect. A total of 33 minutes of time were spent preparing this complex discharge summary. Pt was discharged on 09/14/24 on 12:30 pm. Patient was seen independently by Nurse Practitioner. This document was prepared using [employer] dictation software. Please allow for errors in editor publications while rare they do occur. Jasson Hart NP rendered care for this patient independently, reviewed the findings and plan as documented in the note above. I did not physically speak with or examine the patient on this date. Patient Condition at Discharge: Stable Plan - Discharge Summary Discharge Rx Participant: No New Discharge Prescriptions: New cefuroxime axetiL [Ceftin] 500 mg PO BID 6 Days #10 tab Continue Montelukast [Singulair] 10 mg PO HS PRN PRN Reason: Allergy Symptoms oxyCODONE HCL/ACETAMINOPHEN [oxyCODONE HCL/ACETAMINOPHEN 7.5-325] 1 tab PO Q6H PRN PRN Reason: Pain Fluticasone Nasal Ney [Flonase Nasal Ney] 1 spray EA NOSTRIL BID PRN PRN Reason: Allergy Symptoms Cholecalciferol (Vitamin D3) [Vitamin D3 (50 Mcg = 2000 Iu)] 50 mcg PO DAILY Albuterol Inhaler [Ventolin Hfa Inhaler] 2 puff INHALATION RT-Q6H PRN PRN Reason: Shortness Of Breath levETIRAcetam [Keppra] 500 mg PO BID Budesonide/Formoterol Fumarate [Symbicort 80-4.5 Mcg Inhaler] 2 puff INHALATION RT-BID rOPINIRole HCL [Requip] 2 mg PO BID Multivitamins, Thera [Multivitamin (formulary)] 1 tab PO DAILY Discontinued Sulfamethox-Tmp 800-160Mg [Bactrim DS 800-160 mg] 1 tab PO Q12HR Ciprofloxacin HCl [Cipro] 500 mg PO Q12HR Discharge Medication List Albuterol Inhaler [Ventolin Hfa Inhaler] 2 puff INHALATION RT-Q6H PRN 03/15/22 [History] levETIRAcetam [Keppra] 500 mg PO BID 03/15/22 [History] Montelukast [Singulair] 10 mg PO HS PRN 09/25/22 [History] Budesonide/Formoterol Fumarate [Symbicort 80-4.5 Mcg Inhaler] 2 puff INHALATION RT-BID 09/12/24 [History] Cholecalciferol (Vitamin D3) [Vitamin D3 (50 Mcg = 2000 Iu)] 50 mcg PO DAILY 09/12/24 [History] Fluticasone Nasal Ney [Flonase Nasal Ney] 1 spray EA NOSTRIL BID PRN 09/12/24 [History] Multivitamins, Thera [Multivitamin (formulary)] 1 tab PO DAILY 09/12/24 [History] oxyCODONE HCL/ACETAMINOPHEN [oxyCODONE HCL/ACETAMINOPHEN 7.5-325] 1 tab PO Q6H PRN 09/12/24 [History] rOPINIRole HCL [Requip] 2 mg PO BID 09/12/24 [History] cefuroxime axetiL [Ceftin] 500 mg PO BID 6 Days #10 tab 09/14/24 [Rx] Follow up Appointment(s)/Referral(s): Bernardo Francois MD [STAFF PHYSICIAN] - 1 Week (You will need an outpatient ureteroscopy with stent removal) Omid Marks DO [Primary Care Provider] - 1-2 days Patient Instructions/Handouts: Ureteral Stent Placement (DC) Discharge Disposition: HOME SELF-CARE
== END 2024-09-14 12:45 | disposition home or self-care (01) | DRG 463 ==
LOC: EC 09:33 → 4SSUR 11:55 → 6NMEDSUR 16:01
PROVIDERS: ADMIT Student in an Organized Health Care Education/Training Program; ATTEND Student in an Organized Health Care Education/Training Program
PROC: 0T778DZ Dilation of Left Ureter with Intraluminal Device, Via Natural or Artificial Opening Endoscopic (ICD-10-PCS; principal; 2024-09-12 15:30)
DX: N13.6 Pyonephrosis (principal); N17.9 Acute kidney failure, unspecified; G40.909 Epilepsy, unspecified, not intractable, without status epilepticus; J44.89 Other specified chronic obstructive pulmonary disease; E87.20 Acidosis, unspecified; K57.30 Diverticulosis of large intestine without perforation or abscess without bleeding; N30.90 Cystitis, unspecified without hematuria; Z79.899 Other long term (current) drug therapy; Z79.51 Long term (current) use of inhaled steroids; Z88.5 Allergy status to narcotic agent; Z91.09 Other allergy status, other than to drugs and biological substances; Z87.891 Personal history of nicotine dependence; Z87.442 Personal history of urinary calculi
CPT/HCPCS: 36415; 74176; 80053; 81001; 82150; 83605; 83690; 85025; 87040; 87086; 93005; 94640; 96361; 96374; 96375; 99285